=== PATIENT | male | born 1970 | race Caucasian/White ===

== ENCOUNTER 2016-05-11 19:48 | Emergency (ER) | payer OTHER ==
[2016-05-11 19:55] VITALS: RESP 16
[2016-05-11] MEDS ORDERED: HYDROmorphone 1 MG/ML 1 ML SYRINGE IM STA (20:16)
[2016-05-11] MEDS ORDERED: KETOROLAC 30 MG/ML 1 ML VIAL IM STA (20:16)
[2016-05-11] MEDS ORDERED: DEXAMETHASONE SOD PHOSPHATE 10 MG/ML 1 ML VIAL IM STA (20:16)
--- NOTE | 2016-05-11 21:19 | ED ---
General Adult HPI - General Chief complaint: Back Pain/Injury Stated complaint: Back Pain Time Seen by Provider: 05/11/16 19:58 Source: patient Mode of arrival: ambulatory Limitations: no limitations - History of Present Illness Initial comments: Patient is a 45-year-old male who presents to ED with a chief complaint of back pain. Patient states that he has chronic lower back pain for which she follows with Dr. Guevara (sp?). The patient states that he's been taking Laurel 10/325 3 times a day. He notes that this has been insufficient for pain management at home. He has an appointment on May [address] Guevara for injections in his back. The patient states that he is able to ambulate without difficulty. He states his pain is worsened when he goes from sitting to standing position. Patient denies any fecal or urinary incontinence. Patient denies any difficulty with urination. Patient denies any fevers or chills. Patient denies any recent trauma. The patient's pain starts in the lumbar region and radiates down the bilateral posterior thighs. It does not go past the knees. Patient denies any weakness of the bilateral lower extremities. - Related Data Home Medications Medication Instructions Recorded Confirmed Lisinopril 20 mg PO DAILY 01/19/15 05/11/16 HYDROcodone/APAP 10-325MG [Laurel 1 tab PO TID PRN 07/19/15 05/11/16 10-325] [place] Carbonate [[place]] 300 mg PO TID 07/19/15 05/11/16 Levothyroxine Sodium [Synthroid] 125 mcg PO DAILY 05/11/16 05/11/16 Previous Rx's Medication Instructions Recorded Escitalopram [Lexapro] 20 mg PO DAILY #30 tab 03/07/15 Ondansetron Odt [Zofran ODT] 4 mg PO Q8HR PRN #5 tab 06/23/15 Pantoprazole Sodium [Protonix] 40 mg PO DAILY #35 tablet. 06/23/15 Ranitidine HCl [Zantac] 150 mg PO BID #70 tab 06/23/15 Sucralfate [Carafate] 1 gm PO QID #80 tab 06/23/15 Cyclobenzaprine [Flexeril] 5 mg PO HS PRN #14 tab 05/11/16 Gabapentin [Neurontin] 100 mg PO TID 14 Days 05/11/16 Allergies Allergy/AdvReac Type Severity Reaction Status Date / Time propoxyphene napsylate AdvReac Nausea & Verified 05/11/16 20:00 [From Azul-N 100] Vomiting Review of Systems ROS Statement: Those systems with pertinent positive or pertinent negative responses have been documented in the HPI. ROS Other: All systems not noted in ROS Statement are negative. Constitutional: Denies: fever, chills, weakness Eyes: Denies: eye pain ENT: Denies: ear pain, throat pain Respiratory: Denies: cough, dyspnea, wheezes Cardiovascular: Denies: chest pain Endocrine: Denies: fatigue Gastrointestinal: Denies: abdominal pain, nausea, vomiting, diarrhea Genitourinary: Denies: dysuria Musculoskeletal: Reports: back pain. Denies: joint swelling, arthralgia Skin: Denies: rash, lesions Neurological: Reports: other (shooting pain down the bilateral posterior thighs) . Denies: headache, weakness, numbness, paresthesias Psychiatric: Denies: anxiety, depression Past Medical History Past Medical History: Eye Disorder, GERD/Reflux, Hypertension, Skin Disorder, Thyroid Disorder Additional Past Medical History / Comment(s): glaucoma left eye, rosacia, peptic ulcer disease, gastritis, duodenitis, chronic back problems. History of Any Multi-Drug Resistant Organisms: MRSA Date of last positivie culture/infection: 2010 MDRO Source:: kim axilla Past Surgical History: Cholecystectomy Additional Past Surgical History / Comment(s): glaucoma eye surgery, EGD with biopsy, left retina sx Additional Past Anesthesia/Blood Transfusion Reaction / Comment(s): has trouble urinating post op Past Psychological History: Anxiety, Bipolar, Depression, Schizophrenia Additional Psychological History / Comment(s): . Smoking Status: Former smoker Past Alcohol Use History: None Reported Additional Past Alcohol Use History / Comment(s): Pt smoked from age 16 until age 21 when he quit. [id number], SMOKED 1-2PPD Past Drug Use History: Marijuana Additional Drug Use History / Comment(s): Pt states he does smoke marijuana on occasion for pain control. INSTRUCTED TO HOLD 24HRS PRIOR TO PROCEDURE - Past Family History Father Additional Family Medical History / Comment(s): Father was pretty healthy-he at age 73 yrs after being struck by a car. Mother Family Medical History: CVA/TIA Additional Family Medical History / Comment(s): Mother in her 60's. General Exam Limitations: no limitations General appearance: alert, in no apparent distress Head exam: Present: atraumatic Eye exam: Present: normal appearance, PERRL, EOMI Pupils: Present: normal accommodation ENT exam: Present: normal exam Neck exam: Present: normal inspection, full ROM Respiratory exam: Present: normal lung sounds bilaterally. Absent: respiratory distress, wheezes, rales, rhonchi, stridor Cardiovascular Exam: Present: regular rate, normal rhythm GI/Abdominal exam: Present: soft. Absent: distended, tenderness, guarding, rebound, rigid Extremities exam: Present: normal inspection, full ROM. Absent: tenderness Back exam: Present: tenderness (tenderness in the bilateral lumbar region. No bony tenderness on exam), muscle spasm, other (no weakness of the bilateral lower extremities) Neurological exam: Present: alert, oriented X3, normal gait, reflexes normal. Absent: motor sensory deficit Psychiatric exam: Present: normal affect Skin exam: Present: warm, dry, intact Course Vital Signs 05/11/16 05/11/16 19:52 21:38 Temperature 96.9 F L 97.6 F Pulse Rate 61 63 Respiratory 16 16 Rate Blood Pressure 120/78 136/76 O2 Sat by Pulse 97 96 Oximetry Medical Decision Making - Medical Decision Making Patient is a 45-year-old male who presents to ED with a chief complaint of back pain. Patient has chronic back pain. This is bulging disks in the lumbar region. He states that his pain has grown more severe over the course the past 3-4 days. States that the Laurel that he's been taking his been insufficient. Patient notes he has an appointment for spinal injections on May 18. He is looking for medication to help bridge him until that time. We'll provide patient with dose of Dilaudid, Toradol, Decadron today. We'll discharge patient home with Gabapentin and Flexeril. 9:18 PM Patient states that his pain is improved with Dialudid, Decadron, Toradol. Patient requesting to be discharged at this point in time. Patient will be discharged with prescription for Gabapentin and Flexeril to use at home. Counseled patient to use Flexeril QHS for pain to help him sleep. Encouraged patient to follow up with Dr. Guevara for further management of his symptoms, including back injections. I've answered all of the patient's questions to his satisfaction. The patient has ambulated out of the ED. Disposition Clinical Impression: Back pain Disposition: HOME SELF-CARE Condition: Good Instructions: Acute Low Back Pain (ED) Additional Instructions: Please return to the ED should you have worsening symptoms at home, particularly increased difficulty with walking. Also return should you have difficulty with urination. Prescriptions: Cyclobenzaprine [Flexeril] 5 mg PO HS PRN #14 tab PRN Reason: Muscle Spasm Gabapentin [Neurontin] 100 mg PO TID 14 Days Referrals: Devin Goff MD [Primary Care Provider] - 1-2 days Time of Disposition: 21:18
[2016-05-11 21:41] VITALS: BP 136/76; PULSE 63; TEMP 97.6
== END 2016-05-11 21:40 | disposition home or self-care (01) ==
LOC: EC 19:48
DX: G89.29 Other chronic pain (principal); M54.5 Low back pain; E07.9 Disorder of thyroid, unspecified; I10 Essential (primary) hypertension; K21.9 Gastro-esophageal reflux disease without esophagitis; F31.9 Bipolar disorder, unspecified; K27.9 Peptic ulcer, site unspecified, unspecified as acute or chronic, without hemorrhage or perforation; Z88.6 Allergy status to analgesic agent; Z86.14 Personal history of Methicillin resistant Staphylococcus aureus infection; Z87.891 Personal history of nicotine dependence; Z79.899 Other long term (current) drug therapy
CPT/HCPCS: 99283; 96372 ×2; J1100; J1885; J1170

== ENCOUNTER 2016-07-12 15:52 | Emergency (ER) | payer OTHER ==
[2016-07-12 16:00] VITALS: BP 96/51; PULSE 78; RESP 18; TEMP 98
--- NOTE | 2016-07-12 16:22 | ED ---
Lower Extremity Injury HPI - General Chief Complaint: Extremity Injury, Lower Stated Complaint: left foot injury Time Seen by Provider: 07/12/16 16:07 Source: patient, RN notes reviewed, old records reviewed Mode of arrival: wheelchair Limitations: no limitations - History of Present Illness Initial Comments: Patient is a 45-year-old male chief complaint of left foot and ankle pain past 2 days. Patient reports that he was going down the steps of his port. He states that his father and brother went on the steps and no problem. He is the third person ago down in the wood gave out and his foot went through the steps. Patient states that when he fell he also landed on his left side of his lower back. Patient states that he is on a pain contract with Dr. Burton on his been taking [place], but it does not help. He reports that he has been ambulating and bearing weight over his foot. He denies any nausea or vomiting. Denies any other associated symptoms with the fall. He states that he has had no loss of bowel or bladder function. - Related Data Home Medications Medication Instructions Recorded Confirmed Lisinopril 20 mg PO DAILY 01/19/15 05/11/16 HYDROcodone/APAP 10-325MG [[place] 1 tab PO TID PRN 07/19/15 05/11/16 10-325] [place] Carbonate [[place]] 300 mg PO TID 07/19/15 05/11/16 Levothyroxine Sodium [Synthroid] 125 mcg PO DAILY 05/11/16 05/11/16 Previous Rx's Medication Instructions Recorded Escitalopram [Lexapro] 20 mg PO DAILY #30 tab 03/07/15 Ondansetron Odt [Zofran ODT] 4 mg PO Q8HR PRN #5 tab 06/23/15 Pantoprazole Sodium [Protonix] 40 mg PO DAILY #35 tablet. 06/23/15 Ranitidine HCl [Zantac] 150 mg PO BID #70 tab 06/23/15 Sucralfate [Carafate] 1 gm PO QID #80 tab 06/23/15 Cyclobenzaprine [Flexeril] 5 mg PO HS PRN #14 tab 05/11/16 Gabapentin [Neurontin] 100 mg PO TID 14 Days 05/11/16 Ibuprofen [Motrin] 800 mg PO Q6HR PRN #20 tab 07/12/16 Allergies Allergy/AdvReac Type Severity Reaction Status Date / Time propoxyphene napsylate AdvReac Nausea & Verified 07/12/16 16:00 [From Azul-N 100] Vomiting Review of Systems ROS Statement: Those systems with pertinent positive or pertinent negative responses have been documented in the HPI. ROS Other: All systems not noted in ROS Statement are negative. Past Medical History Past Medical History: Eye Disorder, GERD/Reflux, Hypertension, Skin Disorder, Thyroid Disorder Additional Past Medical History / Comment(s): glaucoma left eye, rosacia, peptic ulcer disease, gastritis, duodenitis, chronic back problems. History of Any Multi-Drug Resistant Organisms: MRSA Date of last positivie culture/infection: 2010 MDRO Source:: kim axilla Past Surgical History: Cholecystectomy Additional Past Surgical History / Comment(s): glaucoma eye surgery, EGD with biopsy, left retina sx Additional Past Anesthesia/Blood Transfusion Reaction / Comment(s): has trouble urinating post op Past Psychological History: Anxiety, Bipolar, Depression, Schizophrenia Additional Psychological History / Comment(s): . Smoking Status: Former smoker Past Alcohol Use History: None Reported Additional Past Alcohol Use History / Comment(s): Pt smoked from age 16 until age 21 when he quit. [id number], SMOKED 1-2PPD Past Drug Use History: Marijuana Additional Drug Use History / Comment(s): Pt states he does smoke marijuana on occasion for pain control. INSTRUCTED TO HOLD 24HRS PRIOR TO PROCEDURE - Past Family History Father Additional Family Medical History / Comment(s): Father was pretty healthy-he at age 73 yrs after being struck by a car. Mother Family Medical History: CVA/TIA Additional Family Medical History / Comment(s): Mother in her 60's. General Exam - General Exam Comments Initial Comments: Pleasant 45-year-old male. No distress. Limitations: no limitations General appearance: alert, in no apparent distress Head exam: Present: atraumatic, normocephalic, normal inspection Eye exam: Present: normal appearance, PERRL, EOMI. Absent: scleral icterus, conjunctival injection, periorbital swelling ENT exam: Present: normal exam, normal oropharynx, mucous membranes moist Neck exam: Present: normal inspection Respiratory exam: Present: normal lung sounds bilaterally. Absent: respiratory distress, wheezes, rales, rhonchi, stridor Cardiovascular Exam: Present: regular rate, normal rhythm, normal heart sounds. Absent: systolic murmur, diastolic murmur, rubs, gallop, clicks GI/Abdominal exam: Present: soft, normal bowel sounds. Absent: distended, tenderness, guarding, rebound, rigid Extremities exam: Present: normal inspection, full ROM, normal capillary refill. Absent: tenderness, pedal edema, joint swelling, calf tenderness Left Knee exam: Present: normal inspection, full ROM Lower Leg exam: Present: normal inspection, full ROM Ankle exam: Present: tenderness. Absent: normal inspection, full ROM (Has limited flexion and extension inversion and eversion due to pain.) Foot/Toe exam: Present: normal inspection, full ROM Neurovascular tendon exam: Present: no vascular compromise Gait: observed and limited by pain. negative: observed and normal Back exam: Present: normal inspection Neurological exam: Present: alert, oriented X3, CN II-XII intact Psychiatric exam: Present: normal affect, normal mood Skin exam: Present: warm, dry, intact, normal color. Absent: rash Course Vital Signs 07/12/16 15:58 Temperature 98.0 F Pulse Rate 78 Respiratory 18 Rate Blood Pressure 96/51 O2 Sat by Pulse 97 Oximetry Procedures - Orthopedic Splinting/Casting Injury #1 Side: left Lower Extremity Injury Location: ankle Lower Extremity Immobilizer: stirrup splint Other Orthopedic Equipment: crutches Medical Decision Making - Medical Decision Making Patient is a 45-year-old male with left foot and ankle pain and swelling for 2 days after falling through a porch. Patient also has some lumbar back pain from the fall. He denies any saddle anesthesias or incontinence. Patient does have some contusions over the lower back. Patient's x-rays reviewed. This showed no evidence of any fractures or acute abdomen or maladies. Patient does have significant swelling over the left ankle and foot consistent with a sprain. Patient will be put in a ankle stirrup splint this time. Discussed following up with orthopedic. Patient will be discharged with pain medication as well. Patient agrees the treatment plan will comply. Return parameters were discussed. - Radiology Data Radiology results: report reviewed Foot x-ray shows no acute osseous abnormality. Normal three-view her left ankle. Degenerative disc change in L5-S1. Disposition Clinical Impression: Ankle sprain, Back contusion Disposition: HOME SELF-CARE Condition: Good Instructions: Ankle Sprain (ED), Low Back Strain (ED) Additional Instructions: Patient advised to elevate extremity, ice, and be nonweightbearing over the ankle. Patient has to walk with crutches for the next week. Follow-up with orthopedic physician in approximately one week if symptoms continue to persist. Return to the emergency department if any alarming signs or symptoms occur. Take pain medication as prescribed. Prescriptions: Ibuprofen [Motrin] 800 mg PO Q6HR PRN #20 tab PRN Reason: Pain Referrals: Devin Goff MD [Primary Care Provider] - 1-2 days Time of Disposition: 16:51
--- NOTE | 2016-07-12 16:41 | XR ---
EXAMINATION TYPE: XR foot complete LT DATE OF EXAM: 07/12/2016 4:34 PM COMPARISON: NONE HISTORY: Pain after fall TECHNIQUE: 3 views left foot FINDINGS: Fifth digit appear short. No acute fractures or dislocations are evident. Soft tissues appe ar normal. Follow-up exam can be performed 7-10 days from acute trauma for continued pain. IMPRESSION: 1. No acute osseous abnormality.
--- NOTE | 2016-07-12 16:41 | XR ---
EXAMINATION TYPE: XR ankle complete LT DATE OF EXAM: 07/12/2016 4:34 PM COMPARISON: NONE HISTORY: Swelling pain TECHNIQUE: 3 views left ankle FINDINGS: Ankle mortise is intact. No acute fractures are evident. Soft tissues appear normal. Follow-up exam can be performed 7-10 days from acute trauma for continued pain IMPRESSION: 1. Normal three-view left ankle
--- NOTE | 2016-07-12 16:42 | XR ---
EXAMINATION TYPE: XR lumbar spine 2 or 3V DATE OF EXAM: 07/12/2016 4:34 PM COMPARISON: NONE HISTORY: Pain TECHNIQUE: Three view lumbar spine FINDINGS: There 5 lumbar-type vertebral bodies. Pedicles are intact. Mild narrowing of the posterior disc space at L5-S1 is present. Disc heights are otherwise preserved. Vertebral body heights are pres erved. Alignment is straightened. IMPRESSION: 1. Degenerative disc change L5-S1.
== END 2016-07-12 17:15 | disposition home or self-care (01) ==
LOC: EC 15:52
DX: S93.402A Sprain of unspecified ligament of left ankle, initial encounter (principal); S30.0XXA Contusion of lower back and pelvis, initial encounter; I10 Essential (primary) hypertension; E07.9 Disorder of thyroid, unspecified; F31.9 Bipolar disorder, unspecified; F20.9 Schizophrenia, unspecified; F41.9 Anxiety disorder, unspecified; Z87.891 Personal history of nicotine dependence; Z79.899 Other long term (current) drug therapy; Z88.5 Allergy status to narcotic agent; W10.9XXA Fall (on) (from) unspecified stairs and steps, initial encounter
CPT/HCPCS: 29515; 72100; 99284

== ENCOUNTER 2016-10-13 18:53 | Observation (INO) | payer OTHER ==
[2016-10-13] MEDS ORDERED: SODIUM CHLORIDE 0.9% 1,000 ML IV STA (19:05)
[2016-10-13] MEDS ORDERED: ONDANSETRON 4 MG/2 ML VIAL IVP STA (19:05)
--- NOTE | 2016-10-13 19:08 | ED ---
General Adult HPI - General Chief complaint: Nausea/Vomiting/Diarrhea Stated complaint: feverish Time Seen by Provider: 10/13/16 19:00 Source: patient, RN notes reviewed Mode of arrival: ambulatory Limitations: no limitations - History of Present Illness Initial comments: This is a 46-year-old male who presents emergency Department complaining of diaphoresis and nausea. Patient states this morning he gave plasma and after he gave plasma he was very nauseated that nausea went away and returned early in the afternoon. That again went away and then he started feeling nauseous at about 6:[address] drive him to the hospital. Patient states on route to the hospital he vomited times one. Patient denies any fever chills. Patient denies any pain. Patient denies chest pain difficulty breathing shortness breath per patient denies any abdominal pain. Patient denies any diarrhea. Patient denies any recent fever or chills. Patient denies any recent injury or trauma. Patient denies headache patient denies numbness weakness. - Related Data Home Medications Medication Instructions Recorded Confirmed Lisinopril 20 mg PO DAILY 01/19/15 10/13/16 HYDROcodone/APAP 10-325MG [[place] 1 tab PO TID PRN 07/19/15 10/13/16 10-325] [place] Carbonate [[place]] 300 mg PO TID 07/19/15 10/13/16 Levothyroxine Sodium [Synthroid] 125 mcg PO DAILY 05/11/16 10/13/16 ALPRAZolam [Xanax] 1 mg PO TID PRN 10/13/16 10/13/16 Ondansetron [Zofran] 4 mg PO QID PRN 10/13/16 10/13/16 Sucralfate [Carafate] 1 gm PO ACHS 10/13/16 10/13/16 Previous Rx's Medication Instructions Recorded Escitalopram [Lexapro] 20 mg PO DAILY #30 tab 03/07/15 Pantoprazole Sodium [Protonix] 40 mg PO DAILY #35 tablet. 06/23/15 Ranitidine HCl [Zantac] 150 mg PO BID #70 tab 06/23/15 Allergies Allergy/AdvReac Type Severity Reaction Status Date / Time propoxyphene napsylate AdvReac Nausea & Verified 10/13/16 18:55 [From Darvocet-N 100] Vomiting Review of Systems ROS Statement: Those systems with pertinent positive or pertinent negative responses have been documented in the HPI. ROS Other: All systems not noted in ROS Statement are negative. Past Medical History Past Medical History: Eye Disorder, GERD/Reflux, Hypertension, Skin Disorder, Thyroid Disorder Additional Past Medical History / Comment(s): glaucoma left eye, rosacia, peptic ulcer disease, gastritis, duodenitis, chronic back problems. History of Any Multi-Drug Resistant Organisms: MRSA Date of last positivie culture/infection: 2010 MDRO Source:: kim axilla Past Surgical History: Cholecystectomy Additional Past Surgical History / Comment(s): glaucoma eye surgery, EGD with biopsy, left retina sx Additional Past Anesthesia/Blood Transfusion Reaction / Comment(s): has trouble urinating post op Past Psychological History: Anxiety, Bipolar, Depression, Schizophrenia Smoking Status: Former smoker Past Alcohol Use History: None Reported Past Drug Use History: Marijuana - Past Family History Father Additional Family Medical History / Comment(s): Father was pretty healthy-he at age 73 yrs after being struck by a car. Mother Family Medical History: CVA/TIA Additional Family Medical History / Comment(s): Mother in her 60's. General Exam - General Exam Comments Initial Comments: GENERAL: Patient is well-developed and well-nourished. Patient is nontoxic and well- hydrated and is in mild distress. Patient is obviously diaphoretic ENT: Neck is soft and supple. No significant lymphadenopathy is noted. Oropharynx is clear. Moist mucous membranes. Neck has full range of motion without eliciting any pain. EYES: The sclera were anicteric and conjunctiva were pink and moist. Extraocular movements were intact and pupils were equal round and reactive to light. Eyelids were unremarkable. PULMONARY: Unlabored respirations. Good breath sounds bilaterally. No audible rales rhonchi or wheezing was noted. CARDIOVASCULAR: There is a regular rate and rhythm without any murmurs gallops or rubs. ABDOMEN: Soft and nontender with normal bowel sounds. No palpable organomegaly was noted. There is no palpable pulsatile mass. SKIN: Skin is clear with no lesions or rashes and otherwise unremarkable. NEUROLOGIC: Patient is alert and oriented x3. Cranial nerves II through XII are grossly intact. Motor and sensory are also intact. Normal speech, volume and content. Symmetrical smile. MUSCULOSKELETAL: Normal extremities with adequate strength and full range of motion. No lower extremity swelling or edema. No calf tenderness. LYMPHATICS: No significant lymphadenopathy is noted PSYCHIATRIC: Normal psychiatric evaluation. Limitations: no limitations Course Vital Signs 10/13/16 10/13/16 10/13/16 18:55 19:23 20:19 Temperature 96.7 F L 97.8 F Pulse Rate 52 L 55 L 56 L Respiratory 18 18 18 Rate Blood Pressure 138/97 121/65 141/79 O2 Sat by Pulse 100 100 100 Oximetry Medical Decision Making - Medical Decision Making EKG shows sinus bradycardia 52 bpm HI interval 162 QRS is 82 QT interval is 472 QTC is 438. There is no ST segment elevation or depression. I will back into the room to reevaluate the patient's heart rate was 36 on the monitor he was again diaphoretic feel nauseous. Patient states the symptoms come and go in waves per patient states at no time does he feel any pain. Patient denies any lightheadedness or dizziness. Patient states this is been ongoing all day. Patient states one other time he was told he was bradycardic. - Lab Data Result diagrams: 10/13/16 19:10 10/13/16 19:10 Lab Results 10/13/16 10/13/16 10/13/16 Range/Units 19:10 19:10 19:10 WBC 18.4 H (3.8-10.6) k/uL RBC 5.44 (4.30-5.90) m/uL Hgb 16.4 (13.0-17.5) gm/dL Hct 49.2 (39.0-53.0) % MCV 90.5 (80.0-100.0) fL MCH 30.2 (25.0-35.0) pg MCHC 33.4 (31.0-37.0) g/dL RDW 13.6 (11.5-15.5) % Plt Count 403 (150-450) k/uL Neutrophils % 85 % Lymphocytes % 9 % Monocytes % 5 % Eosinophils % 1 % Basophils % 1 % Neutrophils # 15.6 H (1.3-7.7) k/uL Lymphocytes # 1.6 (1.0-4.8) k/uL Monocytes # 0.9 (0-1.0) k/uL Eosinophils # 0.1 (0-0.7) k/uL Basophils # 0.1 (0-0.2) k/uL Sodium 136 L (137-145) mmol/L Potassium 4.3 (3.5-5.1) mmol/L Chloride 106 (98-107) mmol/L Carbon Dioxide 19 L (22-30) mmol/L Anion Gap 11 mmol/L BUN 14 (9-20) mg/dL Creatinine 0.88 (0.66-1.25) mg/dL Est GFR (MDRD) Af Amer >60 (>60 ml/min/1.73 sqM) Est GFR (MDRD) Non-Af >60 (>60 ml/min/1.73 sqM) Glucose 158 H (74-99) mg/dL Calcium 9.9 (8.4-10.2) mg/dL Magnesium 1.8 (1.6-2.3) mg/dL Total Bilirubin 0.6 (0.2-1.3) mg/dL AST 28 (17-59) U/L ALT 42 (21-72) U/L Alkaline Phosphatase 84 (38-126) U/L Total Creatine Kinase 50 L (55-170) U/L CK-MB (CK-2) 1.1 (0.0-2.4) ng/mL CK-MB (CK-2) Rel Index 2.2 Troponin I <0.012 (0.000-0.034) ng/mL Total Protein 6.4 (6.3-8.2) g/dL Albumin 4.2 (3.5-5.0) g/dL Urine Opiates Screen (NotDetected) Ur Oxycodone Screen (NotDetected) Urine Methadone Screen (NotDetected) Ur Propoxyphene Screen (NotDetected) Ur Barbiturates Screen (NotDetected) U Tricyclic Antidepress (NotDetected) Ur Phencyclidine Scrn (NotDetected) Ur Amphetamines Screen (NotDetected) U Methamphetamines Scrn (NotDetected) U Benzodiazepines Scrn (NotDetected) Urine Cocaine Screen (NotDetected) U Marijuana (THC) Screen (NotDetected) 10/13/16 Range/Units 20:08 WBC (3.8-10.6) k/uL RBC (4.30-5.90) m/uL Hgb (13.0-17.5) gm/dL Hct (39.0-53.0) % MCV (80.0-100.0) fL MCH (25.0-35.0) pg MCHC (31.0-37.0) g/dL RDW (11.5-15.5) % Plt Count (150-450) k/uL Neutrophils % % Lymphocytes % % Monocytes % % Eosinophils % % Basophils % % Neutrophils # (1.3-7.7) k/uL Lymphocytes # (1.0-4.8) k/uL Monocytes # (0-1.0) k/uL Eosinophils # (0-0.7) k/uL Basophils # (0-0.2) k/uL Sodium (137-145) mmol/L Potassium (3.5-5.1) mmol/L Chloride (98-107) mmol/L Carbon Dioxide (22-30) mmol/L Anion Gap mmol/L BUN (9-20) mg/dL Creatinine (0.66-1.25) mg/dL Est GFR (MDRD) Af Amer (>60 ml/min/1.73 sqM) Est GFR (MDRD) Non-Af (>60 ml/min/1.73 sqM) Glucose (74-99) mg/dL Calcium (8.4-10.2) mg/dL Magnesium (1.6-2.3) mg/dL Total Bilirubin (0.2-1.3) mg/dL AST (17-59) U/L ALT (21-72) U/L Alkaline Phosphatase (38-126) U/L Total Creatine Kinase (55-170) U/L CK-MB (CK-2) (0.0-2.4) ng/mL CK-MB (CK-2) Rel Index Troponin I (0.000-0.034) ng/mL Total Protein (6.3-8.2) g/dL Albumin (3.5-5.0) g/dL Urine Opiates Screen Detected H (NotDetected) Ur Oxycodone Screen Not Detected (NotDetected) Urine Methadone Screen Not Detected (NotDetected) Ur Propoxyphene Screen Not Detected (NotDetected) Ur Barbiturates Screen Not Detected (NotDetected) U Tricyclic Antidepress Not Detected (NotDetected) Ur Phencyclidine Scrn Not Detected (NotDetected) Ur Amphetamines Screen Not Detected (NotDetected) U Methamphetamines Scrn Not Detected (NotDetected) U Benzodiazepines Scrn Not Detected (NotDetected) Urine Cocaine Screen Not Detected (NotDetected) U Marijuana (THC) Screen Detected H (NotDetected) Disposition Clinical Impression: Symptomatic bradycardia Disposition: ADMITTED IP TO THIS HOSP Referrals: Devin Goff MD [Primary Care Provider] - 1-2 days Time of Disposition: 20:40
[2016-10-13] MEDS ORDERED: ESOMEPRAZOLE 20 MG in SODIUM CHLORIDE 0.9% 50 ML IVPB STA (19:15)
[2016-10-13 19:25] LABS: Basophils # (A) 0.1 k/uL (0-0.2); Basophils % (A) 1 %; CH 31.3; CHCM 34.7; Eosinophils # (A) 0.1 k/uL (0-0.7); Eosinophils % (A) 1 %; HCT 49.2 % (39.0-53.0); HGB 16.4 gm/dL (13.0-17.5); Luc # (Auto) 0.11; Luc % (Auto) 1; Lymphocytes # (A) 1.6 k/uL (1.0-4.8); Lymphocytes % (A) 9 %; MCH 30.2 pg (25.0-35.0); MCHC 33.4 g/dL (31.0-37.0); MCV 90.5 fL (80.0-100.0); Mean Platelet Volume 7.9; Monocytes # (A) 0.9 k/uL (0-1.0); Monocytes % (A) 5 %; Neutrophils # (A) 15.6 k/uL (1.3-7.7); Neutrophils % (A) 85 %; RBC 5.44 m/uL (4.30-5.90); RDW 13.6 % (11.5-15.5); WBC 18.4 k/uL (3.8-10.6); WBC (Perox) 19.34
[2016-10-13 19:35] LABS: ALT 42 U/L (21-72); AST 28 U/L (17-59); Alkaline Phosphatase 84 U/L (38-126); Anion Gap 11 mmol/L; Blood Urea Nitrogen 14 mg/dL (9-20); Calcium 9.9 mg/dL (8.4-10.2); Carbon Dioxide 19 mmol/L (22-30); Chloride 106 mmol/L (98-107); Glucose 158 mg/dL (74-99); Magnesium 1.8 mg/dL (1.6-2.3); Non-African American GFR(MDRD) >60 (>60 ml/min/1.73 sqM); Potassium 4.3 mmol/L (3.5-5.1); Sodium 136 mmol/L (137-145); Total Bilirubin 0.6 mg/dL (0.2-1.3); Total Protein 6.4 g/dL (6.3-8.2)
[2016-10-13 19:53] LABS: Creatine Kinase 50 U/L (55-170)
[2016-10-13 20:07] LABS: Creatine Kinase MB 1.1 ng/mL (0.0-2.4); Troponin I <0.012 ng/mL (0.000-0.034)
[2016-10-13] MEDS ORDERED: SODIUM CHLORIDE 0.9% 1,000 ML IV ONE (20:40)
--- NOTE | 2016-10-13 21:03 | XR ---
EXAMINATION TYPE: XR chest 2V DATE OF EXAM: 10/13/2016 COMPARISON: January 27, 2016 HISTORY: Difficulty breathing. TECHNIQUE: Frontal and lateral views of the chest are obtained. FINDINGS: There is no focal air space opacity, pleural effusion, or pneumothorax seen. The cardiac silhouette size is within normal limits. The osseous structures are intact. The appearance of the c hest is unchanged. IMPRESSION: No acute cardiopulmonary process.
[2016-10-13] MEDS: ONDANSETRON 4 MG/2 ML VIAL IVP PRN (22:00)
[2016-10-13 22:16] VITALS: BMI 27.6
[2016-10-13] MEDS: HYDROcodone/APAP 5-325MG 1 EACH TAB PO PRN (22:21)
[2016-10-14 00:20] VITALS: RESP 16
[2016-10-14 01:14] LABS: Appearance,Urine Clear (Clear); Bilirubin,Urine Negative (Negative); Glucose,Urine (UA) Negative (Negative); Ketones,Urine 3+ (Negative); Leukocyte Esterase,Urine Negative (Negative); Nitrite,Urine Negative (Negative); PH, Urine 6.5 (5.0-8.0); Protein,Urine Trace (Negative); Specific Gravity,Urine 1.019 (1.001-1.035); UA Billing (MACRO vs. MICRO) CHEM; Urobilinogen,Urine <2.0 mg/dL (<2.0)
[2016-10-14] MEDS: HYDROcodone/APAP 5-325MG 1 EACH TAB PO PRN ×2 (03:29→09:59)
[2016-10-14] MEDS: ONDANSETRON 4 MG/2 ML VIAL IVP PRN (11:21)
[2016-10-14 12:07] VITALS: BP 140/77; PULSE 62; TEMP 98.3
[2016-10-14] MEDS ORDERED: ALPRAZolam 0.5 MG TAB PO PRN (12:07)
[2016-10-14] MEDS ORDERED: PANTOPRAZOLE 40 MG TABLET PO SCH (12:30)
[2016-10-14] MEDS ORDERED: ESCITALOPRAM 20 MG TAB PO SCH (12:30)
[2016-10-14] MEDS ORDERED: LISINOPRIL 20 MG TAB PO SCH (12:30)
[2016-10-14] MEDS ORDERED: SUCRALFATE 1 GM TAB PO SCH (12:30)
[2016-10-14] MEDS ORDERED: FAMOTIDINE 20 MG TAB PO SCH (12:30)
[2016-10-14] MEDS ORDERED: LITHIUM CARBONATE 300 MG CAP PO SCH (12:30)
--- NOTE | 2016-10-14 14:33 | P.HPIM ---
History of Present Illness H&P Date: 10/14/16 This is a 46-year-old gentleman comes in the hospital with diaphoresis and generalized weakness. Patient stated that he was in normal health the day prior to admission Patient did not eat his dinner thereafter went to donate plasma. Patient left the plasma donation center was weak then started noticing multiple episodes of diaphoresis hence came in the emergency room for further care Patient states that he has not had anything to eat all day yesterday Patient was seen in the ER was noted to have a heart rhythm around 50s sinus rhythm on the initial EKG with no ST-T wave changes Patient was diaphoretic was given IV fluids and oral intake was encouraged patient states that he is improved overnight does states that he was able to have it without much difficulty denies having any headaches blurry vision nausea vomiting diarrhea Patient does attribute his symptoms to recent plasma donation and dehydration Review of Systems All systems: negative (Noted in HPI) Past Medical History Past Medical History: Eye Disorder, GERD/Reflux, Hypertension, Skin Disorder, Thyroid Disorder Additional Past Medical History / Comment(s): bradycardia, glaucoma left eye, rosacia, peptic ulcer disease, gastritis, duodenitis, chronic back problems. History of Any Multi-Drug Resistant Organisms: MRSA Date of last positivie culture/infection: 2010 MDRO Source:: kim axilla Past Surgical History: Cholecystectomy Additional Past Surgical History / Comment(s): glaucoma eye surgery, EGD with biopsy, left retina sx Additional Past Anesthesia/Blood Transfusion Reaction / Comment(s): has trouble urinating post op Past Psychological History: Anxiety, Bipolar, Depression, Schizophrenia Additional Psychological History / Comment(s): . Smoking Status: Former smoker Past Alcohol Use History: None Reported Past Drug Use History: Marijuana Additional Drug Use History / Comment(s): Pt states he does smoke marijuana on occasion for pain control. - Past Family History Father Additional Family Medical History / Comment(s): Father was pretty healthy-he at age 73 yrs after being struck by a car. Mother Family Medical History: CVA/TIA Additional Family Medical History / Comment(s): Mother in her 60's. Medications and Allergies Home Medications Medication Instructions Recorded Confirmed Type Lisinopril 20 mg PO DAILY 01/19/15 10/13/16 History HYDROcodone/APAP 10-325MG [[place] 1 tab PO TID PRN 07/19/15 10/13/16 History 10-325] [place] Carbonate 300 mg PO TID 07/19/15 10/13/16 History Levothyroxine Sodium [Synthroid] 125 mcg PO DAILY 05/11/16 10/13/16 History ALPRAZolam [Xanax] 1 mg PO TID PRN 10/13/16 10/13/16 History Ondansetron [Zofran] 4 mg PO QID PRN 10/13/16 10/13/16 History Sucralfate [Carafate] 1 gm PO ACHS 10/13/16 10/13/16 History Allergies Allergy/AdvReac Type Severity Reaction Status Date / Time propoxyphene napsylate AdvReac Nausea & Verified 10/13/16 18:55 [From [facility]-N 100] Vomiting Physical Exam Vitals: Vital Signs Temp Pulse Pulse Pulse Resp BP BP 10/14/16 12:00 98.3 F 62 16 140/77 10/14/16 08:00 98.7 F 52 L 16 141/73 10/14/16 04:00 98.7 F 59 L 16 134/74 10/14/16 03:38 49 L 16 10/14/16 00:00 98.5 F 84 16 131/74 10/13/16 22:25 42 L 18 10/13/16 21:02 51 L 18 146/91 10/13/16 20:54 98.1 F 44 L 16 144/81 10/13/16 20:19 97.8 F 56 L 18 141/79 10/13/16 19:23 55 L 18 121/65 10/13/16 18:55 96.7 F L 52 L 18 138/97 Pulse Ox 10/14/16 12:00 95 10/14/16 08:00 98 10/14/16 04:00 99 10/14/16 03:38 10/14/16 00:00 98 10/13/16 22:25 10/13/16 21:02 100 10/13/16 20:54 100 10/13/16 20:19 100 10/13/16 19:23 100 10/13/16 18:55 100 Intake and Output 10/13/16 10/14/16 10/14/16 22:59 06:59 14:59 Other: Voiding Method Toilet Toilet # Voids 2 Weight 95.2 kg Physical exam Gen. appearance oriented 3 in no distress Neck is supple no JVD Lungs good air entry clear to auscultation no rhonchi or wheezing Heart S1-S2 heard regular rate and rhythm no murmurs appreciated Abdomen is soft nontender no organomegaly bowel sounds are intact Neurologically cranial nerves II-12 grossly intact no focal motor or sensory deficits noted Skin no abnormalities appreciated Results CBC & Chem 7: 10/13/16 19:10 10/13/16 19:10 Labs: Abnormal Lab Results - Last 24 Hours (Table) 10/13/16 10/13/16 10/13/16 Range/Units 19:10 19:10 19:10 WBC 18.4 H (3.8-10.6) k/uL Neutrophils # 15.6 H (1.3-7.7) k/uL Sodium 136 L (137-145) mmol/L Carbon Dioxide 19 L (22-30) mmol/L Glucose 158 H (74-99) mg/dL Total Creatine Kinase 50 L (55-170) U/L Urine Protein (Negative) Urine Ketones (Negative) Urine Opiates Screen (NotDetected) U Marijuana (THC) Screen (NotDetected) 10/13/16 10/13/16 Range/Units 20:08 23:55 WBC (3.8-10.6) k/uL Neutrophils # (1.3-7.7) k/uL Sodium (137-145) mmol/L Carbon Dioxide (22-30) mmol/L Glucose (74-99) mg/dL Total Creatine Kinase (55-170) U/L Urine Protein Trace H (Negative) Urine Ketones 3+ H (Negative) Urine Opiates Screen Detected H (NotDetected) U Marijuana (THC) Screen Detected H (NotDetected) Microbiology - Last 24 Hours (Table) 10/13/16 23:55 Urine Culture - Preliminary Urine,Voided Thrombosis Risk Factor Assmnt - Choose All That Apply Each Factor Represents 1 point: Age 41-60 years Thrombosis Risk Factor Assessment Total Risk Factor Score: 1 Thrombosis Risk Factor Assessment Level: Low Risk Assessment and Plan Plan: #1 presyncope likely due to dehydration and recent plasma donation #2 essential hypertension #3 bipolar disorder #4 disability #5 hypothyroidism Plan Patient was hydrated is stable was able to family without difficulty I suspected diaphoresis and presyncope symptoms are likely due to severe dehydration Patient was stable is discharged home in a stable condition patient is not symptomatic with his bradycardia patient's heart rate still 50s and is tolerating it well
--- NOTE | 2016-10-14 16:30 | P.CRDCN ---
History of Present Illness Consult date: 10/14/16 History of present illness: This is a 46-year-old gentleman who was admitted to the hospital with extreme nausea and weakness and agent apparently donated plasma. He subsequently noticed he would episodes of sweating and also nausea. While in the emergency room patient became bradycardic. Patient is admitted here for further evaluation. And has given IV fluids. Since admission his heart rate has been stable. He denies any chest pain or shortness of breath. No history of syncope. Plan at this point I do not think patient needs any further cardiac workup. His of bradycardia is most probably vasovagal. Patient also might have been mildly dehydrated. Patient could be discharged home from Card[facility] standpoint Past Medical History Past Medical History: Eye Disorder, GERD/Reflux, Hypertension, Skin Disorder, Thyroid Disorder Additional Past Medical History / Comment(s): bradycardia, glaucoma left eye, rosacia, peptic ulcer disease, gastritis, duodenitis, chronic back problems. History of Any Multi-Drug Resistant Organisms: MRSA Date of last positivie culture/infection: 2010 MDRO Source:: kim axilla Past Surgical History: Cholecystectomy Additional Past Surgical History / Comment(s): glaucoma eye surgery, EGD with biopsy, left retina sx Additional Past Anesthesia/Blood Transfusion Reaction / Comment(s): has trouble urinating post op Past Psychological History: Anxiety, Bipolar, Depression, Schizophrenia Additional Psychological History / Comment(s): . Smoking Status: Former smoker Past Alcohol Use History: None Reported Past Drug Use History: Marijuana Additional Drug Use History / Comment(s): Pt states he does smoke marijuana on occasion for pain control. - Past Family History Father Additional Family Medical History / Comment(s): Father was pretty healthy-he at age 73 yrs after being struck by a car. Mother Family Medical History: CVA/TIA Additional Family Medical History / Comment(s): Mother in her 60's. Medications and Allergies Home Medications Medication Instructions Recorded Confirmed Type Lisinopril 20 mg PO DAILY 01/19/15 10/13/16 History HYDROcodone/APAP 10-325MG [[place] 1 tab PO TID PRN 07/19/15 10/13/16 History 10-325] [place] Carbonate 300 mg PO TID 07/19/15 10/13/16 History Levothyroxine Sodium [Synthroid] 125 mcg PO DAILY 05/11/16 10/13/16 History ALPRAZolam [Xanax] 1 mg PO TID PRN 10/13/16 10/13/16 History Ondansetron [Zofran] 4 mg PO QID PRN 10/13/16 10/13/16 History Sucralfate [Carafate] 1 gm PO ACHS 10/13/16 10/13/16 History Allergies Allergy/AdvReac Type Severity Reaction Status Date / Time propoxyphene napsylate AdvReac Nausea & Verified 10/13/16 18:55 [From Darvocet-N 100] Vomiting Physical Exam Vitals: Vital Signs Temp Pulse Pulse Pulse Resp BP BP 10/14/16 12:00 98.3 F 62 16 140/77 10/14/16 08:00 98.7 F 52 L 16 141/73 10/14/16 04:00 98.7 F 59 L 16 134/74 10/14/16 03:38 49 L 16 10/14/16 00:00 98.5 F 84 16 131/74 10/13/16 22:25 42 L 18 10/13/16 21:02 51 L 18 146/91 10/13/16 20:54 98.1 F 44 L 16 144/81 10/13/16 20:19 97.8 F 56 L 18 141/79 10/13/16 19:23 55 L 18 121/65 10/13/16 18:55 96.7 F L 52 L 18 138/97 Pulse Ox 10/14/16 12:00 95 10/14/16 08:00 98 10/14/16 04:00 99 10/14/16 03:38 10/14/16 00:00 98 10/13/16 22:25 10/13/16 21:02 100 10/13/16 20:54 100 10/13/16 20:19 100 10/13/16 19:23 100 10/13/16 18:55 100 Intake and Output 10/14/16 10/14/16 10/14/16 06:59 14:59 22:59 Other: Voiding Method Toilet # Voids 2 GENERAL EXAM: Patient is alert and oriented and doesn't appear to be in any acute distress HEENT: Normocephalic. Normal reaction of pupils, equal size, normal range of extraocular motion. No erythema or exudates in the throat. NECK: No masses, no nuchal rigidity. CHEST: No chest wall deformity. LUNGS: Equal air entry with no crackles or wheeze. HEART: S1 and S2 normal with no audible mumurs or gallops. Regular rhythm, femorals equal on both sides.. ABDOMEN: No hepatosplenomegaly, normal bowel sounds, no guarding or rigidity. SKIN: No rashes CENTRAL NERVOUS SYSTEM: No focal deficits. EXTREMITIES: No cyanosis, clubbing or edema. Results 10/13/16 19:10 10/13/16 19:10 Cardiac Enzymes 10/13/16 10/13/16 Range/Units 19:10 19:10 AST 28 (17-59) U/L CK-MB (CK-2) 1.1 (0.0-2.4) ng/mL Troponin I <0.012 (0.000-0.034) ng/mL CBC 10/13/16 Range/Units 19:10 WBC 18.4 H (3.8-10.6) k/uL RBC 5.44 (4.30-5.90) m/uL Hgb 16.4 (13.0-17.5) gm/dL Hct 49.2 (39.0-53.0) % Plt Count 403 (150-450) k/uL Comprehensive Metabolic Panel 10/13/16 Range/Units 19:10 Sodium 136 L (137-145) mmol/L Potassium 4.3 (3.5-5.1) mmol/L Chloride 106 (98-107) mmol/L Carbon Dioxide 19 L (22-30) mmol/L BUN 14 (9-20) mg/dL Creatinine 0.88 (0.66-1.25) mg/dL Glucose 158 H (74-99) mg/dL Calcium 9.9 (8.4-10.2) mg/dL AST 28 (17-59) U/L ALT 42 (21-72) U/L Alkaline Phosphatase 84 (38-126) U/L Total Protein 6.4 (6.3-8.2) g/dL Albumin 4.2 (3.5-5.0) g/dL Intake and Output 10/14/16 10/14/16 10/14/16 06:59 14:59 22:59 Other: Voiding Method Toilet # Voids 2 10/13/16 19:10 10/13/16 19:10 EKG Interpretations (text) Sinus rhythm and sinus bradycardia Assessment and Plan (1) Bradycardia Status: Acute (2) Nausea Status: Acute (3) Hypertension Status: Acute Plan: Patient had a mild bradycardia related to nausea and vasovagal phenomenon. No Sigmund arrhythmias are noted. Patient doesn't have any chest pain. From Cardec standpoint patient could be discharged home.
[2016-10-15] MEDS ORDERED: LEVOTHYROXINE 125 MCG TAB PO SCH (06:30)
== END 2016-10-14 13:40 | disposition home or self-care (01) ==
LOC: EC 18:53 → 3OBS 20:40
PROVIDERS: ADMIT Hospitalist; ATTEND Hospitalist
DX: E86.0 Dehydration (principal); R55 Syncope and collapse; I10 Essential (primary) hypertension; E03.9 Hypothyroidism, unspecified; F31.9 Bipolar disorder, unspecified; R19.7 Diarrhea, unspecified; R11.2 Nausea with vomiting, unspecified; R00.1 Bradycardia, unspecified; K21.9 Gastro-esophageal reflux disease without esophagitis; H57.9 Unspecified disorder of eye and adnexa; H40.9 Unspecified glaucoma; L71.9 Rosacea, unspecified; Z79.899 Other long term (current) drug therapy; Z87.11 Personal history of peptic ulcer disease; Z88.5 Allergy status to narcotic agent; F41.9 Anxiety disorder, unspecified; F20.9 Schizophrenia, unspecified; Z86.14 Personal history of Methicillin resistant Staphylococcus aureus infection; Z87.891 Personal history of nicotine dependence
CPT/HCPCS: 96361 ×3; 96376 ×2; 96374; 96375; 99285; 36415; 93005; 80053; 82550; 82553; 80178; 83735; 84484; 85025; 81003; 80306; 87086; 71020; G0378 ×2; J2405 ×2

== ENCOUNTER 2016-11-28 03:07 | Emergency (ER) | payer OTHER ==
[2016-11-28 03:13] VITALS: BP 131/60; PULSE 58; RESP 16; TEMP 98.6
[2016-11-28] MEDS ORDERED: SULFAMETH-TMP DS STARTER PACK 2 TAB BTL PO STA (03:49)
--- NOTE | 2016-11-28 03:55 | ED ---
General Adult HPI - General Chief complaint: Extremity Problem,Nontraumatic Stated complaint: Abcess on left shoulder Time Seen by Provider: 11/28/16 03:15 Source: patient Mode of arrival: ambulatory - History of Present Illness Initial comments: 46-year-old male patient presents to emergency department today for evaluation of an abscess to his posterior left shoulder. Patient states that about a week ago he had a blackhead to his left shoulder that he popped, and got some drainage of pus. He states that over the last week the area has become swollen , red, and painful. He states that tonight is very tender to the touch and he couldn't handle the pain any longer. Patient states that he takes [place] 10 for chronic back pain and this did not help his pain. Patient denies any recent fever, chills, shortness breath, chest pain, abdominal pain, nausea, vomiting, diarrhea, constipation, back pain, numbness, tingling, weakness, hematuria, headache, visual changes, or any other complaints. He denies any history of IV drug abuse. Denies any history of similar lesions. - Related Data Home Medications Medication Instructions Recorded Confirmed Lisinopril 20 mg PO DAILY 01/19/15 10/13/16 HYDROcodone/APAP 10-325MG [[place] 1 tab PO TID PRN 07/19/15 10/13/16 10-325] [place] Carbonate 300 mg PO TID 07/19/15 10/13/16 Levothyroxine Sodium [Synthroid] 125 mcg PO DAILY 05/11/16 10/13/16 ALPRAZolam [Xanax] 1 mg PO TID PRN 10/13/16 10/13/16 Ondansetron [Zofran] 4 mg PO QID PRN 10/13/16 10/13/16 Sucralfate [Carafate] 1 gm PO ACHS 10/13/16 10/13/16 Previous Rx's Medication Instructions Recorded Escitalopram [Lexapro] 20 mg PO DAILY #30 tab 03/07/15 Pantoprazole Sodium [Protonix] 40 mg PO DAILY #35 tablet. 06/23/15 Ranitidine HCl [Zantac] 150 mg PO BID #70 tab 06/23/15 Sulfamethox-Tmp 800-160Mg [Bactrim 1 tab PO Q12HR #20 tab 11/28/16 DS 800-160 mg] Allergies Allergy/AdvReac Type Severity Reaction Status Date / Time propoxyphene napsylate AdvReac Nausea & Verified 10/13/16 18:55 [From Darvocet-N 100] Vomiting Review of Systems ROS Statement: Those systems with pertinent positive or pertinent negative responses have been documented in the HPI. ROS Other: All systems not noted in ROS Statement are negative. Past Medical History Past Medical History: Eye Disorder, GERD/Reflux, Hypertension, Skin Disorder, Thyroid Disorder Additional Past Medical History / Comment(s): bradycardia, glaucoma left eye, rosacia, peptic ulcer disease, gastritis, duodenitis, chronic back problems. History of Any Multi-Drug Resistant Organisms: MRSA Date of last positivie culture/infection: 2010 MDRO Source:: kim axilla Past Surgical History: Cholecystectomy Additional Past Surgical History / Comment(s): glaucoma eye surgery, EGD with biopsy, left retina sx Additional Past Anesthesia/Blood Transfusion Reaction / Comment(s): has trouble urinating post op Past Psychological History: Anxiety, Bipolar, Depression, Schizophrenia Smoking Status: Former smoker Past Alcohol Use History: None Reported Past Drug Use History: Marijuana - Past Family History Father Additional Family Medical History / Comment(s): Father was pretty healthy-he at age 73 yrs after being struck by a car. Mother Family Medical History: CVA/TIA Additional Family Medical History / Comment(s): Mother in her 60's. General Exam General appearance: alert, in no apparent distress Neck exam: Present: normal inspection. Absent: tenderness, meningismus, lymphadenopathy Respiratory exam: Present: normal lung sounds bilaterally. Absent: respiratory distress, wheezes, rales, rhonchi, stridor Cardiovascular Exam: Present: regular rate, normal rhythm, normal heart sounds. Absent: systolic murmur, diastolic murmur, rubs, gallop, clicks Extremities exam: Present: full ROM, normal capillary refill, other (Left posterior shoulder exhibits a 3 cm x 3 cm abscess, with erythema extending out approximately 4-5 cm. Area is hot to touch, and fluctuant.). Absent: normal inspection, tenderness, pedal edema, joint swelling, calf tenderness Neurological exam: Present: alert, oriented X3, CN II-XII intact Psychiatric exam: Present: normal affect, normal mood Skin exam: Present: warm, dry, intact, normal color. Absent: rash Course Vital Signs 11/28/16 03:10 Temperature 98.6 F Pulse Rate 58 L Respiratory 16 Rate Blood Pressure 131/60 O2 Sat by Pulse 98 Oximetry Procedures - Incision & Drainage Consent Obtained: verbal consent Time Out Performed?: Yes Indication: Abscess Site: other (Left posterior shoulder) Size (cm): 3 (3 cm x 3 cm) Anesthetic Used: lidocaine 1% Amount (mLs): 4 I&D Cleaning Method: Betadine Sterile Field Used?: Yes Scalpel Used: #11 Needle Aspiration Performed?: No Irrigation Performed?: No I&D Drainage Obtained: Pus, Blood Packing: Iodoform Culture Obtained?: Yes Patient Tolerated Procedure: well, no complications Medical Decision Making - Medical Decision Making 46 year-old male presented for evaluation of abscess to his left posterior shoulder. I&D was performed to the abscess, drainage of pus and blood was cultured. Site was packed with iodoform gauze. He was given Bactrim starter pack here in the department. He is referred to general surgery for reevaluation of the abscess. He was instructed to return here for packing removal in 3 days if he is unable to get into the surgeon. He does not currently have a primary care physician however states that he will call to get an appointment. Patient takes [place] 10 home for pain control. He is instructed to apply warm compresses to the site. He is instructed to complete antibiotic prescription in full even if he is feeling better. He is instructed to return here immediately if he develops any fever or any other new, worsening , or concerning symptoms. Patient verbalizes understanding and agrees with this plan. Disposition Clinical Impression: Abscess, Cellulitis Disposition: HOME SELF-CARE Condition: Good Instructions: Sulfamethoxazole/Trimethoprim (By mouth), Cellulitis (ED), Abscess Incision and Drainage (ED), Abscess (ED) Additional Instructions: Apply warm compresses to site. Follow-up with general surgeon, if unable to get in within 3 days return to emergency department for replacement of packing. Return here immediately for any fever, chills, or any other new, worsening, or concerning symptoms. Prescriptions: Sulfamethox-Tmp 800-160Mg [Bactrim DS 800-160 mg] 1 tab PO Q12HR #20 tab Referrals: None,Stated [Primary Care Provider] - 1-2 days Barber Fenton MD [STAFF PHYSICIAN] - 1-2 days Time of Disposition: 03:55
== END 2016-11-28 04:01 | disposition home or self-care (01) ==
LOC: EC 03:07
DX: L02.414 Cutaneous abscess of left upper limb (principal); L03.114 Cellulitis of left upper limb; K21.9 Gastro-esophageal reflux disease without esophagitis; I10 Essential (primary) hypertension; E07.9 Disorder of thyroid, unspecified; F31.9 Bipolar disorder, unspecified; Z86.14 Personal history of Methicillin resistant Staphylococcus aureus infection; Z87.891 Personal history of nicotine dependence; Z79.899 Other long term (current) drug therapy; Z88.5 Allergy status to narcotic agent
CPT/HCPCS: 10061; 87070; 87205; 99283

== ENCOUNTER 2016-11-29 22:20 | Emergency (ER) | payer OTHER ==
[2016-11-29 22:29] VITALS: BP 136/81; PULSE 86; RESP 18; TEMP 98.1
--- NOTE | 2016-11-29 23:04 | ED ---
General Adult HPI - General Chief complaint: Skin/Abscess/Foreign Body Stated complaint: need dressing change Time Seen by Provider: 11/29/16 22:50 Source: patient, RN notes reviewed, old records reviewed Mode of arrival: ambulatory Limitations: no limitations - History of Present Illness Initial comments: chief complaint history of present illness a 46-year-old male here to have his packing removed from an infected abscess that it was removed an I&D yesterday. Patient states she's had that abscess there for over a year - Related Data Home Medications Medication Instructions Recorded Confirmed Lisinopril 20 mg PO DAILY 01/19/15 10/13/16 HYDROcodone/APAP 10-325MG [[place] 1 tab PO TID PRN 07/19/15 10/13/16 10-325] [place] Carbonate 300 mg PO TID 07/19/15 10/13/16 Levothyroxine Sodium [Synthroid] 125 mcg PO DAILY 05/11/16 10/13/16 ALPRAZolam [Xanax] 1 mg PO TID PRN 10/13/16 10/13/16 Ondansetron [Zofran] 4 mg PO QID PRN 10/13/16 10/13/16 Sucralfate [Carafate] 1 gm PO ACHS 10/13/16 10/13/16 Previous Rx's Medication Instructions Recorded Escitalopram [Lexapro] 20 mg PO DAILY #30 tab 03/07/15 Pantoprazole Sodium [Protonix] 40 mg PO DAILY #35 tablet. 06/23/15 Ranitidine HCl [Zantac] 150 mg PO BID #70 tab 06/23/15 Sulfamethox-Tmp 800-160Mg [Bactrim 1 tab PO Q12HR #20 tab 11/28/16 DS 800-160 mg] Allergies Allergy/AdvReac Type Severity Reaction Status Date / Time propoxyphene napsylate AdvReac Nausea & Verified 10/13/16 18:55 [From Lollyt-N 100] Vomiting Review of Systems ROS Statement: Those systems with pertinent positive or pertinent negative responses have been documented in the HPI. review of systems no other complaints other than wanting to have the drain removed. ROS Other: All systems not noted in ROS Statement are negative. Past Medical History Past Medical History: Eye Disorder, GERD/Reflux, Hypertension, Skin Disorder, Thyroid Disorder Additional Past Medical History / Comment(s): bradycardia, glaucoma left eye, rosacia, peptic ulcer disease, gastritis, duodenitis, chronic back problems. History of Any Multi-Drug Resistant Organisms: MRSA Date of last positivie culture/infection: 2010 MDRO Source:: kim axilla Past Surgical History: Cholecystectomy Additional Past Surgical History / Comment(s): glaucoma eye surgery, EGD with biopsy, left retina sx Additional Past Anesthesia/Blood Transfusion Reaction / Comment(s): has trouble urinating post op Past Psychological History: Anxiety, Bipolar, Depression, Schizophrenia Smoking Status: Former smoker Past Alcohol Use History: None Reported Past Drug Use History: Marijuana - Past Family History Father Additional Family Medical History / Comment(s): Father was pretty healthy-he at age 73 yrs after being struck by a car. Mother Family Medical History: CVA/TIA Additional Family Medical History / Comment(s): Mother in her 60's. General Exam - General Exam Comments Initial Comments: physical exam; vital signs temp 98.1, pulse 86, respiratory rate 18, blood pressure 136/81. Pulse ox 98% room air. pertinent to the patient's visit is here for removal of foreign range iodoform gauze. This is removed. It was repacked with a sterile gauze. The patient be advised to remove tomorrow on the shower to continue treatment at home with frequent showers draining the abscess so it heals from the base. He was told the abscess or sebaceous cyst probably reform them before becomes infected he talked with family physician about having it removed. Limitations: no limitations Course Vital Signs 11/29/16 22:27 Temperature 98.1 F Pulse Rate 86 Respiratory 18 Rate Blood Pressure 136/81 O2 Sat by Pulse 98 Oximetry Medical Decision Making - Medical Decision Making patient strain was removed. Whole kept open with another sterile drain inserted by me. dressing applied Disposition Clinical Impression: Encounter for wound re-check Disposition: HOME SELF-CARE Condition: Good Instructions: Abscess Incision and Drainage (ED) Additional Instructions: removed dressing again tomorrow in the shower. Keep wound open until it heals from the base up. Follow-up with family physician. Referrals: None,Stated [Primary Care Provider] - 1-2 days Time of Disposition: 23:04
== END 2016-11-29 23:17 | disposition home or self-care (01) ==
LOC: EC 22:20
DX: Z48.01 Encounter for change or removal of surgical wound dressing (principal); K21.9 Gastro-esophageal reflux disease without esophagitis; I10 Essential (primary) hypertension; E07.9 Disorder of thyroid, unspecified; F31.9 Bipolar disorder, unspecified; Z86.14 Personal history of Methicillin resistant Staphylococcus aureus infection; Z87.891 Personal history of nicotine dependence; Z79.899 Other long term (current) drug therapy; Z88.5 Allergy status to narcotic agent
CPT/HCPCS: 99283

== ENCOUNTER 2016-12-11 07:04 | Emergency (ER) | payer OTHER ==
[2016-12-11] MEDS ORDERED: ONDANSETRON ODT 4 MG TAB PO STA (07:36)
[2016-12-11] MEDS ORDERED: HYDROcodone/APAP 5-325MG 1 EACH TAB PO STA (07:36)
[2016-12-11] MEDS ORDERED: MAG HYDROX/AL HYDROX/SIMETH 30 ML, HYOSCYAMINE ELIXIR 10 ML, CIMETIDINE HCL 300 MG PO STA ×3 (07:36)
[2016-12-11] MEDS ORDERED: DICYCLOMINE 10 MG/ML 2 ML AMP IM STA (07:36)
--- NOTE | 2016-12-11 07:59 | XR ---
EXAMINATION TYPE: XR abdomen acute w cxr DATE OF EXAM: 12/11/2016 CLINICAL HISTORY: Chest and abdominal pain for a few days. TECHNIQUE: Single frontal view of chest is obtained. Supine, left side down lateral decubitus, and u pright views of the abdomen are acquired. COMPARISON: Chest x-ray October 13, 2016. CT abdomen and pelvis August 05, 2015. FINDINGS: The lungs are grossly clear without pleural effusion or pneumothorax. Underlying emphysem atous change is felt present. Cardiac silhouette size appears within normal limits. Osseous structur es are intact. Gas is noted in nondistended small bowel loops. Gas and fecal material is seen in nondistended colon . Cholecystectomy clips are seen. There is displaced clip into pelvis redemonstrated. There are scatt ered pelvic phleboliths. No pneumoperitoneum is present. Slight scoliotic curvature is redemonstrated . IMPRESSION: 1. Chronic emphysematous change without acute pulmonary acute pulmonary process. 2. Overall nonobstructive bowel gas pattern.
[2016-12-11] MEDS ORDERED: PANTOPRAZOLE 40 MG/10 ML VIAL IVP STA (08:28)
[2016-12-11] MEDS ORDERED: RX INFO: IV CONTRAST WAS GIVEN 1 EACH MISC MISCELLANE PRN (08:28)
[2016-12-11] MEDS ORDERED: MORPHINE SULFATE 4 MG/ML SYRINGE IV STA (08:28)
[2016-12-11] MEDS ORDERED: SODIUM CHLORIDE 0.9% 1,000 ML IV STA ×2 (08:28)
[2016-12-11] MEDS ORDERED: ONDANSETRON 4 MG/2 ML VIAL IVP STA (08:28)
--- NOTE | 2016-12-11 08:40 | ED ---
General Adult HPI - General Chief complaint: Abdominal Pain Stated complaint: abdominal pain Time Seen by Provider: 12/11/16 07:26 Source: patient, RN notes reviewed, old records reviewed Mode of arrival: ambulatory Limitations: no limitations - History of Present Illness Initial comments: This is a 46-year-old male to the ER for reevaluation thumping, severe epigastric abdominal pain. Positive nausea. Patient has history of similar symptoms history of gastritis. Patient does take antihistamines, antacids as well as Carafate at home. Symptoms have been worsening as of late. Patient denies any significant nausea vomiting denies any fevers denies any significant travel history or sick contacts. Patient is past has had prior upper and lower endoscopy. As well as multiple CAT scans. States he has bad history of ulcerative epigastric disease - Related Data Home Medications Medication Instructions Recorded Confirmed Lisinopril 20 mg PO DAILY 01/19/15 12/11/16 HYDROcodone/APAP 10-325MG [[place] 1 tab PO TID PRN 07/19/15 12/11/16 10-325] [place] Carbonate 300 mg PO TID 07/19/15 12/11/16 Levothyroxine Sodium [Synthroid] 125 mcg PO DAILY 05/11/16 12/11/16 Ondansetron [Zofran] 4 mg PO QID PRN 10/13/16 12/11/16 Sucralfate [Carafate] 1 gm PO ACHS 10/13/16 12/11/16 Previous Rx's Medication Instructions Recorded Escitalopram [Lexapro] 20 mg PO DAILY #30 tab 03/07/15 Pantoprazole Sodium [Protonix] 40 mg PO DAILY #35 tablet. 06/23/15 Ranitidine HCl [Zantac] 150 mg PO BID #70 tab 06/23/15 Allergies Allergy/AdvReac Type Severity Reaction Status Date / Time propoxyphene napsylate AdvReac Nausea & Verified 12/11/16 07:54 [From Darjose miguelt-N 100] Vomiting Review of Systems ROS Statement: Those systems with pertinent positive or pertinent negative responses have been documented in the HPI. ROS Other: All systems not noted in ROS Statement are negative. Past Medical History Past Medical History: Eye Disorder, GERD/Reflux, Hypertension, Skin Disorder, Thyroid Disorder Additional Past Medical History / Comment(s): bradycardia, glaucoma left eye, rosacia, peptic ulcer disease, gastritis, duodenitis, chronic back problems. History of Any Multi-Drug Resistant Organisms: MRSA Date of last positivie culture/infection: 2010 MDRO Source:: kim axilla Past Surgical History: Cholecystectomy Additional Past Surgical History / Comment(s): glaucoma eye surgery, EGD with biopsy, left retina sx Additional Past Anesthesia/Blood Transfusion Reaction / Comment(s): has trouble urinating post op Past Psychological History: Anxiety, Bipolar, Depression, Schizophrenia Smoking Status: Former smoker Past Alcohol Use History: None Reported Past Drug Use History: Marijuana - Past Family History Father Additional Family Medical History / Comment(s): Father was pretty healthy-he at age 73 yrs after being struck by a car. Mother Family Medical History: CVA/TIA Additional Family Medical History / Comment(s): Mother in her 60's. General Exam Limitations: no limitations General appearance: alert, in no apparent distress Head exam: Present: atraumatic, normocephalic, normal inspection Eye exam: Present: normal appearance, PERRL, EOMI. Absent: scleral icterus, conjunctival injection, periorbital swelling ENT exam: Present: normal exam, mucous membranes moist Neck exam: Present: normal inspection. Absent: tenderness, meningismus, lymphadenopathy Respiratory exam: Present: normal lung sounds bilaterally. Absent: respiratory distress, wheezes, rales, rhonchi, stridor Cardiovascular Exam: Present: regular rate, normal rhythm, normal heart sounds. Absent: systolic murmur, diastolic murmur, rubs, gallop, clicks GI/Abdominal exam: Present: soft, normal bowel sounds. Absent: distended, tenderness, guarding, rebound, rigid Extremities exam: Present: normal inspection, full ROM, normal capillary refill. Absent: tenderness, pedal edema, joint swelling, calf tenderness Back exam: Present: normal inspection Neurological exam: Present: alert, oriented X3, CN II-XII intact Psychiatric exam: Present: normal affect, normal mood Skin exam: Present: warm, dry, intact, normal color. Absent: rash Course Vital Signs 12/11/16 12/11/16 12/11/16 07:09 09:09 10:00 Temperature 97.5 F L Pulse Rate 94 68 61 Respiratory 18 16 20 Rate Blood Pressure 141/89 122/62 154/75 O2 Sat by Pulse 98 99 99 Oximetry - Reevaluation(s) Reevaluation #1: 12/11/16 08:39 Prior endoscopy and CTs are reviewed Reevaluation #2: 12/11/16 10:[address] Bean, patient's surgeon, who has an upper GI and lower GI on this patient. No further Medical Decision Making - Medical Decision Making 46 male to the the ER for evaluation. Patient presents today for evaluation regarding abdominal pain, history of ulcers. Patient will be discharged home to follow up with gastroenterology. At this time patient is CT Lever is within normal limits 46 LDR for evaluation of bowel pain. History of ulcers, did speak with patient' s surgeon who is aware, patient will be discharged home to follow-up with gastroenterology - Lab Data Result diagrams: 12/11/16 09:00 12/11/16 09:00 Lab Results 12/11/16 12/11/16 12/11/16 Range/Units 09:00 09:00 09:00 WBC 10.9 H (3.8-10.6) k/uL RBC 5.38 (4.30-5.90) m/uL Hgb 16.0 (13.0-17.5) gm/dL Hct 49.1 (39.0-53.0) % MCV 91.4 (80.0-100.0) fL MCH 29.8 (25.0-35.0) pg MCHC 32.6 (31.0-37.0) g/dL RDW 13.5 (11.5-15.5) % Plt Count 334 (150-450) k/uL Neutrophils % 85 % Lymphocytes % 5 % Monocytes % 9 % Eosinophils % 0 % Basophils % 1 % Neutrophils # 9.2 H (1.3-7.7) k/uL Lymphocytes # 0.6 L (1.0-4.8) k/uL Monocytes # 0.9 (0-1.0) k/uL Eosinophils # 0.0 (0-0.7) k/uL Basophils # 0.1 (0-0.2) k/uL Sodium 131 L (137-145) mmol/L Potassium 5.0 (3.5-5.1) mmol/L Chloride 100 (98-107) mmol/L Carbon Dioxide 20 L (22-30) mmol/L Anion Gap 11 mmol/L BUN 23 H (9-20) mg/dL Creatinine 1.19 (0.66-1.25) mg/dL Est GFR (MDRD) Af Amer >60 (>60 ml/min/1.73 sqM) Est GFR (MDRD) Non-Af >60 (>60 ml/min/1.73 sqM) Glucose 108 H (74-99) mg/dL Plasma Lactic Acid Ar (0.7-2.0) mmol/L Calcium 9.7 (8.4-10.2) mg/dL Total Bilirubin 0.6 (0.2-1.3) mg/dL AST 33 (17-59) U/L ALT 43 (21-72) U/L Alkaline Phosphatase 100 (38-126) U/L Total Creatine Kinase 55 (55-170) U/L CK-MB (CK-2) 1.0 (0.0-2.4) ng/mL CK-MB (CK-2) Rel Index 1.8 Troponin I 0.020 (0.000-0.034) ng/mL Total Protein 6.6 (6.3-8.2) g/dL Albumin 4.2 (3.5-5.0) g/dL Amylase <30 L (30-110) U/L Lipase 29 (23-300) U/L 12/11/16 Range/Units 09:00 WBC (3.8-10.6) k/uL RBC (4.30-5.90) m/uL Hgb (13.0-17.5) gm/dL Hct (39.0-53.0) % MCV (80.0-100.0) fL MCH (25.0-35.0) pg MCHC (31.0-37.0) g/dL RDW (11.5-15.5) % Plt Count (150-450) k/uL Neutrophils % % Lymphocytes % % Monocytes % % Eosinophils % % Basophils % % Neutrophils # (1.3-7.7) k/uL Lymphocytes # (1.0-4.8) k/uL Monocytes # (0-1.0) k/uL Eosinophils # (0-0.7) k/uL Basophils # (0-0.2) k/uL Sodium (137-145) mmol/L Potassium (3.5-5.1) mmol/L Chloride (98-107) mmol/L Carbon Dioxide (22-30) mmol/L Anion Gap mmol/L BUN (9-20) mg/dL Creatinine (0.66-1.25) mg/dL Est GFR (MDRD) Af Amer (>60 ml/min/1.73 sqM) Est GFR (MDRD) Non-Af (>60 ml/min/1.73 sqM) Glucose (74-99) mg/dL Plasma Lactic Acid Ar 1.1 (0.7-2.0) mmol/L Calcium (8.4-10.2) mg/dL Total Bilirubin (0.2-1.3) mg/dL AST (17-59) U/L ALT (21-72) U/L Alkaline Phosphatase (38-126) U/L Total Creatine Kinase (55-170) U/L CK-MB (CK-2) (0.0-2.4) ng/mL CK-MB (CK-2) Rel Index Troponin I (0.000-0.034) ng/mL Total Protein (6.3-8.2) g/dL Albumin (3.5-5.0) g/dL Amylase (30-110) U/L Lipase (23-300) U/L - Radiology Data Radiology results: report reviewed (CT abdomen and pelvis is negative for acute disease), image reviewed Disposition Clinical Impression: Abdominal pain Disposition: HOME SELF-CARE Condition: Good Instructions: Abdominal Pain (ED) Referrals: None,Stated [Primary Care Provider] - 1-2 days
[2016-12-11 09:22] LABS: Basophils # (A) 0.1 k/uL (0-0.2); Basophils % (A) 1 %; CH 31.3; CHCM 34.4; Eosinophils % (A) 0 %; HCT 49.1 % (39.0-53.0); HDW 2.34; Luc # (Auto) 0.08; Luc % (Auto) 1; Lymphocytes # (A) 0.6 k/uL (1.0-4.8); Lymphocytes % (A) 5 %; MCH 29.8 pg (25.0-35.0); MCHC 32.6 g/dL (31.0-37.0); MCV 91.4 fL (80.0-100.0); Monocytes # (A) 0.9 k/uL (0-1.0); Monocytes % (A) 9 %; Neutrophils # (A) 9.2 k/uL (1.3-7.7); Neutrophils % (A) 85 %; RBC 5.38 m/uL (4.30-5.90); RDW 13.5 % (11.5-15.5); WBC 10.9 k/uL (3.8-10.6); WBC (Perox) 11.32
[2016-12-11 09:35] LABS: ALT 43 U/L (21-72); AST 33 U/L (17-59); Alkaline Phosphatase 100 U/L (38-126); Amylase <30 U/L (30-110); Anion Gap 11 mmol/L; Blood Urea Nitrogen 23 mg/dL (9-20); Calcium 9.7 mg/dL (8.4-10.2); Carbon Dioxide 20 mmol/L (22-30); Chloride 100 mmol/L (98-107); Glucose 108 mg/dL (74-99); Non-African American GFR(MDRD) >60 (>60 ml/min/1.73 sqM); Sodium 131 mmol/L (137-145); Total Bilirubin 0.6 mg/dL (0.2-1.3); Total Protein 6.6 g/dL (6.3-8.2)
[2016-12-11 09:54] LABS: Troponin I 0.02 ng/mL (0.000-0.034)
--- NOTE | 2016-12-11 09:55 | CT ---
EXAMINATION TYPE: CT abdomen pelvis w con DATE OF EXAM: 12/11/2016 COMPARISON: CT abdomen pelvis August 05, 2015 HISTORY: Abdominal pain, nausea and diarrhea CT DLP: 1496 mGycm, Automated Exposure Control for Dose Reduction was Utilized. CONTRAST: CT scan of the abdomen and pelvis is performed without oral but with IV Contrast, patient injected wi th 100 ml mL of Omnipaque 300. FINDINGS: LUNG BASES: No significant abnormality is appreciated. LIVER/GB: Cholecystectomy clips are redemonstrated. PANCREAS: No significant abnormality is seen. SPLEEN: No significant abnormality is seen. ADRENALS: No significant abnormality is seen. KIDNEYS: No significant abnormality is seen. BOWEL: Evaluation bowel is suboptimal secondary to lack of enteric contrast. There is no suspicious s mall or large bowel dilatation seen. There is mild wall thickening throughout the colon including inv olvement of the terminal ileum. Findings could be product of a poor distention, enterocolitis cannot be excluded. Clinical correlation advised. There are a few scattered diverticula throughout the colon . There is no CT evidence for focal acute diverticulitis. PROSTATE/SEMINAL VESICLES: A few scattered pelvic phleboliths are present. Displaced clip in pelvis i s again seen on axial image 72. LYMPH NODES: No greater than 1cm abdominal or pelvic lymph nodes are appreciated. OSSEOUS STRUCTURES: Spine is straightened on sagittal images. There is disc space narrowing at lumbos acral junction noted. OTHER: No significant additional abnormality is seen. IMPRESSION: 1. Suboptimal study. No bowel obstruction is seen. Cannot exclude mild enterocolitis involving nearly entire colon as well as involvement of terminal ileum. Differential would include infectious and inf lammatory etiologies. Findings also could be product of poor distention. Clinical correlation advised .
[2016-12-11 10:27] VITALS: BP 154/75; RESP 20
[2016-12-11 11:19] VITALS: PULSE 67; TEMP 98
== END 2016-12-11 11:25 | disposition home or self-care (01) ==
LOC: EC 07:04
DX: R10.13 Epigastric pain (principal); R11.0 Nausea; K21.9 Gastro-esophageal reflux disease without esophagitis; I10 Essential (primary) hypertension; E07.9 Disorder of thyroid, unspecified; F31.9 Bipolar disorder, unspecified; F41.9 Anxiety disorder, unspecified; F20.9 Schizophrenia, unspecified; Z87.891 Personal history of nicotine dependence; Z79.899 Other long term (current) drug therapy; Z88.5 Allergy status to narcotic agent; Z90.49 Acquired absence of other specified parts of digestive tract
CPT/HCPCS: 36415; 80053; 82150; 82550; 82553; 83605; 83690; 84484; 85025; 74022; 74177; 99285; 96374; 96375 ×2; 96361 ×2; 96372; J2270; J0500; Q9967; J2405; C9113

== ENCOUNTER → 2017-02-04 | Outpatient (CLI) | payer OTHER ==
--- NOTE | 2017-02-04 23:06 | MR ---
EXAMINATION TYPE: MR lumbar spine wo con DATE OF EXAM: 02/04/2017 COMPARISON: NONE HISTORY: Low back pain for some time TECHNIQUE: Multiplanar, multisequence images of the lumbar spine were acquired. Lumbar vertebra have normal alignment. There is degenerative disc space narrowing throughout the lumb ar spine and more noticeable at L3-4 and L5-S1. There are posterior disc herniations at L1-L2 L2-3 L3 -4 L5-S1. Disc herniation is larger at L3-4 with facet arthropathy and mild to moderate spinal stenos is. There is no compression fracture. There is no paraspinal mass. The lumbar neural foramina are temo rly well-maintained. Sacroiliac joints appear normal. I see no focal bone destruction. IMPRESSION: Multilevel spondylosis. Multilevel posterior lumbar disc herniation is producing a spinal stenosis at L3-4. There is a smaller posterior disc herniation at L5-S1 without significant spinal stenosis.
== END | disposition home or self-care (01) ==
LOC: RADMRIMAIN 20:32
PROVIDERS: ATTEND Psychiatry & Neurology Neurology
DX: M48.061 Spinal stenosis, lumbar region without neurogenic claudication (principal); M51.27 Other intervertebral disc displacement, lumbosacral region; M47.816 Spondylosis without myelopathy or radiculopathy, lumbar region
CPT/HCPCS: 72148

== ENCOUNTER 2019-06-29 08:09 | Day surgery (SDC) | payer OTHER ==
[2019-06-25 12:49] VITALS: BMI 24.7
[~2019-06-29 08:09] MED LIST: LACTATED RINGERS 1,000 ML IV SCH
[2019-06-29 08:44] VITALS: TEMP 97.1
[2019-06-29] MEDS ORDERED: LIDOCAINE 1% (10MG/ML) FOR IV START INTRADERMA ONE (08:47)
[2019-06-29] MEDS ORDERED: LIDOCAINE 1% INJ 10MG/ML (20 ML MDV) ONE (09:29)
[2019-06-29] MEDS ORDERED: PROPOFOL 10 MG/ML 20 ML VIAL IV ONE (09:29)
[2019-06-29 09:51] VITALS: RESP 16
--- NOTE | 2019-06-29 10:01 | P.PCN ---
Date of Procedure: 06/29/19 Procedure(s) Performed: BRIEF HISTORY: Patient is a 48-year-old, pleasant, white male scheduled for an upper endoscopy as part advised him severe epigastric pain, heartburn with dysphagia and odynophagia for the last 2 weeks' duration patient he states that he lost about 15 pounds since onset of the symptoms. As long standing history of GERD and has been on Protonix 40 mg daily as well as Carafate 1 g 4 times daily despite which remains symptomatic. He was seen in office last week and the Protonix was increased to twice daily and is scheduled for an upper endoscopy to evaluate further. PROCEDURE PERFORMED: Esophagogastroduodenoscopy with biopsy. PREOPERATIVE DIAGNOSIS: Severe dysphagia/odynophagia with weight loss of 15 pounds in the last 2-3 weeks' duration. Long standing history of GERD. IV sedation per anesthesia. PROCEDURE: After informed consent was obtained, the patient was brought into the endoscopy unit. IV sedation was administered by Anesthesia under continuous monitoring. Initially the Olympus GIF-140 video endoscope was inserted into the mouth. Esophagus intubated without any difficulty. It was gradually advanced into the stomach and duodenum and carefully examined. The bulb and the second part of the duodenum appeared normal. The scope at this time was withdrawn to the stomach, adequately insufflated with air, and upon careful examination, mucosa of the antrum, had a 1.5 cm raised lesion with central depression and severe mucosa suspicious for ectopic pancreas and multiple biopsies were done. The body, cardia and the fundus appeared normal. The scope was then withdrawn into the esophagus. The GE junction was located at 39 cm from the incisors. There were linear erosions in the distal esophagus consistent with LA grade B reflux esophagitis. No esophageal stricture identified. \Biopsies were done from the distal esophagus. The rest of esophagus appeared normal and the patient tolerated the procedure well. IMPRESSION: 1. Linear erosions in the distal esophagus consistent with LA grade B reflux esophagitis. 2. 1.5 cm raised lesion with central depression in the antrum of the stomach suspicious for ectopic pancreas. Status post biopsies. RECOMMENDATIONS: The findings of this examination were discussed with the patient as well as his family. He will remain on Protonix 40 mg twice daily as well as Carafate 1 g 4 times daily. He'll be seen in office in 6 weeks. In the meantime he was advised to follow with the biopsy results.].
[2019-06-29 10:04] VITALS: BP 138/82; PULSE 62
== END 2019-06-29 10:48 | disposition home or self-care (01) ==
LOC: ORWHC2ENDO 08:09
PROVIDERS: ATTEND Internal Medicine Gastroenterology
DX: K29.50 Unspecified chronic gastritis without bleeding (principal); K21.0 Gastro-esophageal reflux disease with esophagitis; K22.10 Ulcer of esophagus without bleeding; K31.7 Polyp of stomach and duodenum; Z88.5 Allergy status to narcotic agent; Z79.890 Hormone replacement therapy; Z79.899 Other long term (current) drug therapy
CPT/HCPCS: 88305; 88342; 43239; J2001; J2704

== ENCOUNTER → 2019-12-08 | Outpatient (CLI) | payer OTHER ==
[2019-12-08 07:45] LABS: HCT 38.2 % (39.0-53.0); HGB 12.3 gm/dL (13.0-17.5); MCH 29.3 pg (25.0-35.0); MCHC 32.3 g/dL (31.0-37.0); MCV 90.8 fL (80.0-100.0); Mean Platelet Volume 7.4; Platelet Count 273 k/uL (150-450); RBC 4.21 m/uL (4.30-5.90); RDW 13.6 % (11.5-15.5); WBC 5.5 k/uL (3.8-10.6)
[2019-12-08 11:02] LABS: African American GFR (CKD) 120.7 (60.0-200.0); Albumin/Globulin Ratio 3.08 (1.60-3.17); BUN/Creat Ratio 12.5 Ratio (12.00-20.00); Globulin 1.3 g/dL (1.6-3.3); Non-African American GFR(CKD) 104.2 (60.0-200.0); Potassium 4.4 mmol/L (3.5-5.5); Total Bilirubin 0.2 mg/dL (0.2-1.2); Total Protein 5.3 g/dL (6.2-8.2)
== END | disposition home or self-care (01) ==
LOC: LABWHC1 07:24
PROVIDERS: ATTEND Physician Assistant
DX: G62.9 Polyneuropathy, unspecified (principal)
CPT/HCPCS: 36415; 80053; 82306; 82607; 84207; 84439; 84443; 84481; 85027

== ENCOUNTER 2022-08-13 06:51 | Emergency (ER) | payer OTHER ==
[2022-08-13 07:02] VITALS: RESP 18
[2022-08-13] MEDS ORDERED: SODIUM CHLORIDE 0.9% 1,000 ML IV STA (07:15)
[2022-08-13] MEDS ORDERED: ONDANSETRON 4 MG/2 ML VIAL IVP STA (07:15)
[2022-08-13] MEDS ORDERED: SODIUM CHLORIDE 0.9% 500 ML 500 ML IV STA (07:15)
[2022-08-13] MEDS ORDERED: DIPHENOX-ATROP 2.5-0.025 MG 1 EACH TAB PO STA ×2 (07:15→08:33)
--- NOTE | 2022-08-13 07:18 | ED ---
General Adult HPI - General Chief complaint: Nausea/Vomiting/Diarrhea Stated complaint: NVD Time Seen by Provider: 08/13/22 07:00 Source: patient, EMS, RN notes reviewed, old records reviewed Mode of arrival: EMS Limitations: no limitations - History of Present Illness Initial comments: This a 52-year-old male who was camping last night about 8:00 last night he started becoming nauseous and started vomiting. Patient states he then started having quite a bit of diarrhea. Patient states continued throughout the night and now he feels dehydrated. Patient states he had abdominal cramping but no specific abdominal pain. Patient denies any chest pain difficulty breathing shortness of breath. Patient denies any fever chills or cough. Patient denies any back pain. Patient denies any other symptoms at this time. - Related Data Home Medications Medication Instructions Recorded Confirmed Levothyroxine Sodium [Synthroid] 125 mcg PO DAILY 05/11/16 06/29/19 Ondansetron [Zofran] 4 mg PO QID PRN 10/13/16 06/29/19 Sucralfate [Carafate] 1 gm PO ACHS 10/13/16 06/29/19 Gabapentin [Neurontin] 900 mg PO TID 06/25/19 06/29/19 HYDROcodone/APAP 10-325MG [[place] 1 tab PO TID PRN 06/25/19 06/29/19 10-325] Pantoprazole Sodium [Protonix] 40 mg PO BID 06/25/19 06/29/19 busPIRone HCl [Buspar] 5 mg PO BID 06/25/19 06/29/19 Allergies Allergy/AdvReac Type Severity Reaction Status Date / Time propoxyphene napsylate AdvReac Nausea & Verified 06/29/19 08:38 [From Darvocet-N 100] Vomiting Review of Systems ROS Statement: Those systems with pertinent positive or pertinent negative responses have been documented in the HPI. ROS Other: All systems not noted in ROS Statement are negative. Past Medical History Past Medical History: Eye Disorder, GERD/Reflux, Hypertension, Skin Disorder, Thyroid Disorder Additional Past Medical History / Comment(s): bradycardia, glaucoma left eye, rosacea, peptic ulcer disease, gastritis, duodenitis, chronic back problems, hiatal hernia History of Any Multi-Drug Resistant Organisms: MRSA Date of last positivie culture/infection: 2010 MDRO Source:: kim axilla Past Surgical History: Cholecystectomy Additional Past Surgical History / Comment(s): glaucoma eye surgery, EGD with biopsy, left retina sx Additional Past Anesthesia/Blood Transfusion Reaction / Comment(s): has trouble urinating post op Past Psychological History: Anxiety, Bipolar, Depression, Schizophrenia Additional Psychological History / Comment(s): . Past Alcohol Use History: None Reported Additional Past Alcohol Use History / Comment(s): Pt smoked from age 16 until age 21 when he quit. [id number], SMOKED 1-2PPD Past Drug Use History: Marijuana Additional Drug Use History / Comment(s): Pt states he does smoke marijuana on occasion for pain control. - Past Family History Father Additional Family Medical History / Comment(s): Father was pretty healthy-he at age 73 yrs after being struck by a car. Mother Family Medical History: CVA/TIA Additional Family Medical History / Comment(s): Mother in her 60's. General Exam - General Exam Comments Initial Comments: GENERAL: Patient is well-developed and well-nourished. Patient is nontoxic and well- hydrated and is in mild distress. ENT: Neck is soft and supple. No significant lymphadenopathy is noted. Oropharynx is clear. Moist mucous membranes. Neck has full range of motion without eliciting any pain. EYES: The sclera were anicteric and conjunctiva were pink and moist. Extraocular movements were intact and pupils were equal round and reactive to light. Eyelids were unremarkable. PULMONARY: Unlabored respirations. Good breath sounds bilaterally. No audible rales rho nchi or wheezing was noted. CARDIOVASCULAR: There is a regular rate and rhythm without any murmurs gallops or rubs. ABDOMEN: Soft and nontender with normal bowel sounds. SKIN: Skin is clear with no lesions or rashes and otherwise unremarkable. NEUROLOGIC: Patient is alert and oriented x3. Cranial nerves II through XII are grossly intact. Motor and sensory are also intact. Normal speech, volume and content. Symmetrical smile. MUSCULOSKELETAL: Normal extremities with adequate strength and full range of motion. LYMPHATICS: No significant lymphadenopathy is noted PSYCHIATRIC: Normal psychiatric evaluation. Limitations: no limitations Course Vital Signs 08/13/22 08/13/22 08/13/22 06:57 07:30 08:00 Temperature 97.4 F L Pulse Rate 63 98 97 Respiratory 18 18 18 Rate Blood Pressure 175/104 146/101 159/105 O2 Sat by Pulse 10 L 99 99 Oximetry 08/13/22 08:30 Temperature 97.8 F Pulse Rate 95 Respiratory 18 Rate Blood Pressure 163/100 O2 Sat by Pulse 99 Oximetry Medical Decision Making - Medical Decision Making Was pt. sent in by a medical professional or institution (, PA, OUTPATIENT PHLEBOTOMIST, urgent care, hospital, or [place] [facility] facility...) When possible be specific @ -No Did you speak to anyone other than the patient for history (EMS, parent, family, police, friend...)? What history was obtained from this source @ -No Did you review nursing and triage notes (agree or disagree)? Why? @ -I reviewed and agree with nursing and triage notes Were old charts reviewed (outside hosp., previous admission, EMS record, old EKG, old radiological studies, urgent care reports/EKG's, [place] health care facility records)? Report findings @ -No old charts were reviewed Differential Diagnosis (chest pain, altered mental status, abdominal pain women, abdominal pain men, vaginal bleeding, weakness, fever, dyspnea, syncope, headache, dizziness, GI bleed, back pain, seizure, CVA, palpatations, mental health, musculoskeletal)? @ -Differential Abdominal Pain Men: Appendicitis, cholecystitis, diverticulosis, ischemic bowel, pancreatitis, hepatitis, UTI, gastroenteritis, AAA, incarcerated hernia, bowel obstruction, constipation, inflammatory bowel, hepatitis, peptic ulcer disease, splenic infarction, perforated viscus, testicular torsion, this is not meant to be an all-inclusive list EKG interpreted by me (3pts min.). @ -As above X-rays interpreted by me (1pt min.). @ -None done CT interpreted by me (1pt min.). @ -None done U/S interpreted by me (1pt. min.). @ -None done What testing was considered but not performed or refused? (CT, X-rays, U/S, labs)? Why? @ -None What meds were considered but not given or refused? Why? @ -None Did you discuss the management of the patient with other professionals (professionals i.e. , PA, OUTPATIENT PHLEBOTOMIST, lab, RT, psych nurse, high school social science teacher, painting department supervisor, teacher, hydrographical technical officer, piano case maker)? Give summary @ -No Was smoking cessation discussed for >3mins.? @ -No Was critical care preformed (if so, how long)? @ -No Were there social determinants of health that impacted care today? How? (Homelessness, low income, unemployed, alcoholism, drug addiction, transportation, low edu. Level, literacy, decrease access to med. care, senior living, rehab)? @ -No Was there de-escalation of care discussed even if they declined (Discuss DNR or withdrawal of care, Hospice)? DNR status @ -No What co-morbidities impacted this encounter? (DM, HTN, Smoking, COPD, CAD, Cancer, CVA, ARF, Chemo, Hep., AIDS, mental health diagnosis, sleep apnea, morbid obesity)? @ -None Was patient admitted / discharged? Hospital course, mention meds given and route, prescriptions, significant lab abnormalities, going to OR and other pertinent info. @ -She received Lomotil and Zofran in the hospital and a liter and a half normal saline. Patient had no vomiting or diarrhea in the emergency department. Lab work came back I discussed with the patient I sent the patient home on Lomotil and Zofran Undiagnosed new problem with uncertain prognosis? @ -No Drug Therapy requiring intensive monitoring for toxicity (Heparin, Nitro, Insulin, Cardizem)? @ -No Were any procedures done? @ -No Diagnosis/symptom? @ -Gastroenteritis Acute, or Chronic, or Acute on Chronic? @ -Acute Uncomplicated (without systemic symptoms) or Complicated (systemic symptoms)? @ -Uncomplicated Side effects of treatment? @ -No Exacerbation, Progression, or Severe Exacerbation? @ -No Poses a threat to life or bodily function? How? (Chest pain, USA, [place], pneumonia, PE, COPD, DKA, ARF, appy, cholecystitis, CVA, Diverticulitis, Homicidal, Suicidal, threat to staff... and all critical care pts) @ -No - Lab Data Result diagrams: 08/13/22 07:18 08/13/22 07:18 Lab Results 08/13/22 08/13/22 Range/Units 07:18 07:18 WBC 10.3 (3.8-10.6) k/uL RBC 4.97 (4.30-5.90) m/uL Hgb 14.4 (13.0-17.5) gm/dL Hct 43.3 (39.0-53.0) % MCV 87.1 (80.0-100.0) fL MCH 29.1 (25.0-35.0) pg MCHC 33.4 (31.0-37.0) g/dL RDW 12.8 (11.5-15.5) % Plt Count 272 (150-450) k/uL MPV 8.4 Neutrophils % 91 % Lymphocytes % 3 % Monocytes % 4 % Eosinophils % 1 % Basophils % 0 % Neutrophils # 9.4 H (1.3-7.7) k/uL Lymphocytes # 0.3 L (1.0-4.8) k/uL Monocytes # 0.4 (0-1.0) k/uL Eosinophils # 0.1 (0-0.7) k/uL Basophils # 0.0 (0-0.2) k/uL Sodium 138 (137-145) mmol/L Potassium 3.8 (3.5-5.1) mmol/L Chloride 106 (98-107) mmol/L Carbon Dioxide 20 L (22-30) mmol/L Anion Gap 12 mmol/L BUN 18 (9-20) mg/dL Creatinine 0.62 L (0.66-1.25) mg/dL Est GFR (CKD-EPI)AfAm >90 (>60 ml/min/1.73 sqM) Est GFR (CKD-EPI)NonAf >90 (>60 ml/min/1.73 sqM) Glucose 150 H (74-99) mg/dL Calcium 9.5 (8.4-10.2) mg/dL Total Bilirubin 0.8 (0.2-1.3) mg/dL AST 43 (17-59) U/L ALT 35 (4-49) U/L Alkaline Phosphatase 136 H (38-126) U/L Total Protein 7.0 (6.3-8.2) g/dL Albumin 4.4 (3.5-5.0) g/dL Amylase 32 (30-110) U/L Lipase 27 (23-300) U/L Disposition Clinical Impression: Gastroenteritis Disposition: HOME SELF-CARE Instructions (If sedation given, give patient instructions): Gastroenteritis (ED) Is patient prescribed a controlled substance at d/c from ED?: No Referrals: Yajaira Manley DO [Primary Care Provider] - 1-2 days
[2022-08-13 07:42] LABS: Basophils % (A) 0 %; Eosinophils # (A) 0.1 k/uL (0-0.7); Eosinophils % (A) 1 %; HCT 43.3 % (39.0-53.0); HGB 14.4 gm/dL (13.0-17.5); Lymphocytes # (A) 0.3 k/uL (1.0-4.8); Lymphocytes % (A) 3 %; MCH 29.1 pg (25.0-35.0); MCHC 33.4 g/dL (31.0-37.0); MCV 87.1 fL (80.0-100.0); Mean Platelet Volume 8.4; Monocytes # (A) 0.4 k/uL (0-1.0); Monocytes % (A) 4 %; Neutrophils # (A) 9.4 k/uL (1.3-7.7); Neutrophils % (A) 91 %; Platelet Count 272 k/uL (150-450); RBC 4.97 m/uL (4.30-5.90); RDW 12.8 % (11.5-15.5); WBC 10.3 k/uL (3.8-10.6)
[2022-08-13 08:08] LABS: AST 43 U/L (17-59); African American GFR (CKD) >90 (>60 ml/min/1.73 sqM); Albumin 4.4 g/dL (3.5-5.0); Amylase 32 U/L (30-110); Anion Gap 12 mmol/L; Blood Urea Nitrogen 18 mg/dL (9-20); Calcium 9.5 mg/dL (8.4-10.2); Carbon Dioxide 20 mmol/L (22-30); Chloride 106 mmol/L (98-107); Glucose 150 mg/dL (74-99); Non-African American GFR(CKD) >90 (>60 ml/min/1.73 sqM); Potassium 3.8 mmol/L (3.5-5.1); Sodium 138 mmol/L (137-145); Total Bilirubin 0.8 mg/dL (0.2-1.3)
[2022-08-13 08:09] LABS: ALT 35 U/L (4-49); Alkaline Phosphatase 136 U/L (38-126); Lipase 27 U/L (23-300)
[2022-08-13] MEDS ORDERED: DIPHENOX-ATROP STARTER PACK 8 TAB BTL PO STA (08:35)
[2022-08-13] MEDS ORDERED: ONDANSETRON 4 MG ODT STARTER PACK 2 TAB BTL PO STA (08:35)
[2022-08-13 08:50] VITALS: BP 163/100; PULSE 95; TEMP 97.8
== END 2022-08-13 08:57 | disposition home or self-care (01) ==
LOC: EC 06:51
DX: K52.9 Noninfective gastroenteritis and colitis, unspecified (principal); K21.9 Gastro-esophageal reflux disease without esophagitis; I10 Essential (primary) hypertension; E07.9 Disorder of thyroid, unspecified; F41.9 Anxiety disorder, unspecified; F31.9 Bipolar disorder, unspecified; F12.90 Cannabis use, unspecified, uncomplicated; Z88.8 Allergy status to other drugs, medicaments and biological substances; Z79.890 Hormone replacement therapy; Z79.899 Other long term (current) drug therapy
CPT/HCPCS: 36415; 80053; 82150; 83690; 85025; 99284; 96374; 96361; J2405; S0119

== ENCOUNTER 2023-04-24 06:58 | Emergency (ER) | payer OTHER ==
[2023-04-24 07:05] VITALS: TEMP 98.4
--- NOTE | 2023-04-24 07:20 | ED ---
Abdominal Pain HPI - General Chief Complaint: Abdominal Pain Stated Complaint: Abdominal Pain Time Seen by Provider: 04/24/23 07:01 Source: patient, EMS, RN notes reviewed Mode of arrival: EMS Limitations: no limitations - History of Present Illness Initial Comments: 52-year-old male presents emergency department with chief complaint of epigastric pain. Patient states started yesterday. Patient states she has had some nausea, body aches chills cough and congestion. Patient states that he was exposed to somebody has pneumonia. Patient denies any change of all habits no dysuria patient has not taken medications to help with symptoms. - Related Data Home Medications Medication Instructions Recorded Confirmed Levothyroxine Sodium [Synthroid] 125 mcg PO DAILY 05/11/16 06/29/19 Ondansetron [Zofran] 4 mg PO QID PRN 10/13/16 06/29/19 Sucralfate [Carafate] 1 gm PO ACHS 10/13/16 06/29/19 Gabapentin [Neurontin] 900 mg PO TID 06/25/19 06/29/19 HYDROcodone/APAP 10-325MG [[place] 1 tab PO TID PRN 06/25/19 06/29/19 10-325] Pantoprazole Sodium [Protonix] 40 mg PO BID 06/25/19 06/29/19 busPIRone HCl [Buspar] 5 mg PO BID 06/25/19 06/29/19 Previous Rx's Medication Instructions Recorded Famotidine [Pepcid] 20 mg PO BID #14 tablet 04/24/23 Ondansetron Odt [Zofran Odt] 4 mg PO Q8HR PRN #10 tab 04/24/23 Allergies Allergy/AdvReac Type Severity Reaction Status Date / Time propoxyphene napsylate AdvReac Nausea & Verified 06/29/19 08:38 [From Darvocet-N 100] Vomiting Review of Systems ROS Statement: Those systems with pertinent positive or pertinent negative responses have been documented in the HPI. ROS Other: All systems not noted in ROS Statement are negative. Past Medical History Past Medical History: Eye Disorder, GERD/Reflux, Hypertension, Skin Disorder, Thyroid Disorder Additional Past Medical History / Comment(s): bradycardia, glaucoma left eye, rosacea, peptic ulcer disease, gastritis, duodenitis, chronic back problems, hiatal hernia History of Any Multi-Drug Resistant Organisms: MRSA Date of last positivie culture/infection: 2010 MDRO Source:: kim axilla Past Surgical History: Cholecystectomy Additional Past Surgical History / Comment(s): glaucoma eye surgery, EGD with biopsy, left retina sx Additional Past Anesthesia/Blood Transfusion Reaction / Comment(s): has trouble urinating post op Past Psychological History: Anxiety, Bipolar, Depression, Schizophrenia Smoking Status: Never smoker Past Alcohol Use History: None Reported Past Drug Use History: Marijuana - Past Family History Father Additional Family Medical History / Comment(s): Father was pretty healthy-he at age 73 yrs after being struck by a car. Mother Family Medical History: CVA/TIA Additional Family Medical History / Comment(s): Mother in her 60's. General Exam Limitations: no limitations General appearance: alert, in no apparent distress Head exam: Present: atraumatic, normocephalic, normal inspection Eye exam: Present: normal appearance, PERRL, EOMI. Absent: scleral icterus, conjunctival injection, periorbital swelling ENT exam: Present: normal exam, mucous membranes moist Neck exam: Present: normal inspection. Absent: tenderness, meningismus, ly mphadenopathy Respiratory exam: Present: normal lung sounds bilaterally. Absent: respiratory distress, wheezes, rales, rhonchi, stridor Cardiovascular Exam: Present: regular rate, normal rhythm, normal heart sounds. Absent: systolic murmur, diastolic murmur, rubs, gallop, clicks GI/Abdominal exam: Present: soft, tenderness, normal bowel sounds. Absent: distended, guarding, rebound, rigid Back exam: Absent: CVA tenderness (R), CVA tenderness (L) Neurological exam: Present: alert Course Vital Signs 04/24/23 04/24/23 07:01 09:17 Temperature 98.4 F Pulse Rate 63 78 Respiratory 17 18 Rate Blood Pressure 159/107 134/112 O2 Sat by Pulse 98 97 Oximetry Medical Decision Making - Medical Decision Making Was pt. sent in by a medical professional or institution (, PA, METAL MODEL MAKER, urgent care, hospital, or [facility]...) When possible be specific @ -No Did you speak to anyone other than the patient for history (EMS, parent, family, police, friend...)? What history was obtained from this source @ -No Did you review nursing and triage notes (agree or disagree)? Why? @ -I reviewed and agree with nursing and triage notes Were old charts reviewed (outside hosp., previous admission, EMS record, old EKG, old radiological studies, urgent care reports/EKG's, [facility] records)? Report findings @ -[Review of prior laboratory studies Differential Diagnosis (chest pain, altered mental status, abdominal pain women, abdominal pain men, vaginal bleeding, weakness, fever, dyspnea, syncope, headache, dizziness, GI bleed, back pain, seizure, CVA, palpatations, mental health, musculoskeletal)? @ -Differential Abdominal Pain Men: Appendicitis, cholecystitis, diverticulosis, ischemic bowel, pancreatitis, hepatitis, UTI, gastroenteritis, AAA, incarcerated hernia, bowel obstruction, constipation, inflammatory bowel, hepatitis, peptic ulcer disease, splenic infarction, perforated viscus, testicular torsion, this is not meant to be an all-inclusive list EKG interpreted by me (3pts min.). @ -[None X-rays interpreted by me (1pt min.). @ -Chest x-ray shows no acute cardiopulmonary process CT interpreted by me (1pt min.). @ -[None done U/S interpreted by me (1pt. min.). @ -None done What testing was considered but not performed or refused? (CT, X-rays, U/S, labs)? Why? @ -None What meds were considered but not given or refused? Why? @ -None Did you discuss the management of the patient with other professionals (professionals i.e. , PA, METAL MODEL MAKER, lab, RT, psych nurse, social services designee, ophthalmic medical assistant, teacher, identification officer, case hardener)? Give summary @ -No Was smoking cessation discussed for >3mins.? @ -No Was critical care preformed (if so, how long)? @ -No Were there social determinants of health that impacted care today? How? (Homelessness, low income, unemployed, alcoholism, drug addiction, transportation, low edu. Level, literacy, decrease access to med. care, custodial, rehab)? @ -No Was there de-escalation of care discussed even if they declined (Discuss DNR or withdrawal of care, Hospice)? DNR status @ -No What co-morbidities impacted this encounter? (DM, HTN, Smoking, COPD, CAD, Cancer, CVA, ARF, Chemo, Hep., AIDS, mental health diagnosis, sleep apnea, morbid obesity)? @ -[GERD Was patient admitted / discharged? Hospital course, mention meds given and route, prescriptions, significant lab abnormalities, going to OR and other pertinent info. @ -Discharge patient feels great improved after antiemetics, GI cocktail. Patient did show moderate signs of dehydration with 3+ ketones. Patient was given fluid bolus. Patient is requesting to be discharged as he feels improved. Patient has no localized abdominal pain at this time. Undiagnosed new problem with uncertain prognosis? @ -[No Drug Therapy requiring intensive monitoring for toxicity (Heparin, Nitro, Insulin, Cardizem)? @ -No Were any procedures done? @ -No Diagnosis/symptom? @ -[GERD, nausea Acute, or Chronic, or Acute on Chronic? @ -Acute Uncomplicated (without systemic symptoms) or Complicated (systemic symptoms)? @ -Uncomplicated Side effects of treatment? @ -[No Exacerbation, Progression, or Severe Exacerbation? @ -No Poses a threat to life or bodily function? How? (Chest pain, [place], [place], pneumonia, PE, COPD, DKA, ARF, appy, cholecystitis, CVA, Diverticulitis, Homicidal, Suicidal, threat to staff... and all critical care pts) @ -No - Lab Data Result diagrams: 04/24/23 07:45 04/24/23 07:45 Lab Results 04/24/23 04/24/23 04/24/23 Range/Units 07:45 07:45 07:45 WBC 8.4 (3.8-10.6) k/uL RBC 5.29 (4.30-5.90) m/uL Hgb 15.5 (13.0-17.5) gm/dL Hct 47.5 (39.0-53.0) % MCV 89.7 (80.0-100.0) fL MCH 29.3 (25.0-35.0) pg MCHC 32.6 (31.0-37.0) g/dL RDW 12.5 (11.5-15.5) % Plt Count 319 (150-450) k/uL MPV 8.6 Neutrophils % 84 % Lymphocytes % 8 % Monocytes % 6 % Eosinophils % 1 % Basophils % 1 % Neutrophils # 7.1 (1.3-7.7) k/uL Lymphocytes # 0.7 L (1.0-4.8) k/uL Monocytes # 0.5 (0-1.0) k/uL Eosinophils # 0.1 (0-0.7) k/uL Basophils # 0.1 (0-0.2) k/uL Sodium 137 (137-145) mmol/L Potassium 4.1 (3.5-5.1) mmol/L Chloride 108 H (98-107) mmol/L Carbon Dioxide 23 (22-30) mmol/L Anion Gap 6 mmol/L BUN 16 (9-20) mg/dL Creatinine 0.68 (0.66-1.25) mg/dL Est GFR (CKD-EPI)AfAm >90 (>60 ml/min/1.73 sqM) Est GFR (CKD-EPI)NonAf >90 (>60 ml/min/1.73 sqM) Glucose 121 H (74-99) mg/dL Plasma Lactic Acid Ar (0.7-2.0) mmol/L Calcium 9.8 (8.4-10.2) mg/dL Total Bilirubin 0.7 (0.2-1.3) mg/dL AST 40 (17-59) U/L ALT 54 H (4-49) U/L Alkaline Phosphatase 135 H (38-126) U/L Total Protein 6.9 (6.3-8.2) g/dL Albumin 4.3 (3.5-5.0) g/dL Lipase 30 (23-300) U/L Urine Color Yellow Urine Appearance Clear (Clear) Urine pH 6.5 (5.0-8.0) Ur Specific [place] 1.018 (1.001-1.035) Urine Protein Trace H (Negative) Urine Glucose (UA) Negative (Negative) Urine Ketones 3+ H (Negative) Urine Blood Negative (Negative) Urine Nitrite Negative (Negative) Urine Bilirubin Negative (Negative) Urine Urobilinogen <2.0 (<2.0) mg/dL Ur Leukocyte Esterase Negative (Negative) Influenza Type A (PCR) (Not Detectd) Influenza Type B (PCR) (Not Detectd) RSV (PCR) (Not Detectd) SARS-CoV-2 (PCR) (Not Detectd) 04/24/23 04/24/23 Range/Units 07:45 07:45 WBC (3.8-10.6) k/uL RBC (4.30-5.90) m/uL Hgb (13.0-17.5) gm/dL Hct (39.0-53.0) % MCV (80.0-100.0) fL MCH (25.0-35.0) pg MCHC (31.0-37.0) g/dL RDW (11.5-15.5) % Plt Count (150-450) k/uL MPV Neutrophils % % Lymphocytes % % Monocytes % % Eosinophils % % Basophils % % Neutrophils # (1.3-7.7) k/uL Lymphocytes # (1.0-4.8) k/uL Monocytes # (0-1.0) k/uL Eosinophils # (0-0.7) k/uL Basophils # (0-0.2) k/uL Sodium (137-145) mmol/L Potassium (3.5-5.1) mmol/L Chloride (98-107) mmol/L Carbon Dioxide (22-30) mmol/L Anion Gap mmol/L BUN (9-20) mg/dL Creatinine (0.66-1.25) mg/dL Est GFR (CKD-EPI)AfAm (>60 ml/min/1.73 sqM) Est GFR (CKD-EPI)NonAf (>60 ml/min/1.73 sqM) Glucose (74-99) mg/dL Plasma Lactic Acid Ar 1.0 (0.7-2.0) mmol/L Calcium (8.4-10.2) mg/dL Total Bilirubin (0.2-1.3) mg/dL AST (17-59) U/L ALT (4-49) U/L Alkaline Phosphatase (38-126) U/L Total Protein (6.3-8.2) g/dL Albumin (3.5-5.0) g/dL Lipase (23-300) U/L Urine Color Urine Appearance (Clear) Urine pH (5.0-8.0) Ur Specific [place] (1.001-1.035) Urine Protein (Negative) Urine Glucose (UA) (Negative) Urine Ketones (Negative) Urine Blood (Negative) Urine Nitrite (Negative) Urine Bilirubin (Negative) Urine Urobilinogen (<2.0) mg/dL Ur Leukocyte Esterase (Negative) Influenza Type A (PCR) Not Detected (Not Detectd) Influenza Type B (PCR) Not Detected (Not Detectd) RSV (PCR) Not Detected (Not Detectd) SARS-CoV-2 (PCR) Not Detected (Not Detectd) Disposition Clinical Impression: GERD (gastroesophageal reflux disease), Nausea, Dehydration Disposition: HOME SELF-CARE Condition: Stable Instructions (If sedation given, give patient instructions): GERD (Franco roesophageal Reflux Disease) (ED) Additional Instructions: Please return to the Emergency Department if symptoms worsen or any other concerns. Prescriptions: Famotidine [Pepcid] 20 mg PO BID #14 tablet Ondansetron Odt [Zofran Odt] 4 mg PO Q8HR PRN #10 tab PRN Reason: Nausea Is patient prescribed a controlled substance at d/c from ED?: No Referrals: Yajaira Manley DO [Primary Care Provider] - 1-2 days Time of Disposition: 09:01
--- NOTE | 2023-04-24 07:44 | XR ---
EXAMINATION TYPE: XR chest 2V DATE OF EXAM: 04/24/2023 7:35 AM CLINICAL INDICATION:Male, 52 years old with history of pain; H COMPARISON: Chest radiographs from and [id number] TECHNIQUE: XR chest 2V Frontal and lateral views of the chest. FINDINGS: Lungs/Pleura: There is no evidence of pleural effusion, focal consolidation, or pneumothorax. Pulmonary vascularity: Unremarkable. Heart/mediastinum: Cardiomediastinal silhouette is unremarkable. Musculoskeletal: No acute osseous pathology. IMPRESSION: 1. No acute cardiopulmonary disease process. 2. COPD changes.
[2023-04-24] MEDS: diphenhydrAMINE 50 MG/ML 1 ML VIAL IVP STA (07:53)
[2023-04-24] MEDS: METOCLOPRAMIDE 5 MG/ML 2 ML VIAL IVP STA (07:53)
[2023-04-24] MEDS: MAG HYDROX/AL HYDROX/SIMETH 30 ML, HYOSCYAMINE ELIXIR 10 ML PO STA (07:53)
[2023-04-24] MEDS: SODIUM CHLORIDE 0.9% 1,000 ML IV STA (07:53)
[2023-04-24 07:55] LABS: Basophils # (A) 0.1 k/uL (0-0.2); Basophils % (A) 1 %; Eosinophils # (A) 0.1 k/uL (0-0.7); Eosinophils % (A) 1 %; HCT 47.5 % (39.0-53.0); HGB 15.5 gm/dL (13.0-17.5); Lymphocytes # (A) 0.7 k/uL (1.0-4.8); Lymphocytes % (A) 8 %; MCH 29.3 pg (25.0-35.0); MCHC 32.6 g/dL (31.0-37.0); MCV 89.7 fL (80.0-100.0); Mean Platelet Volume 8.6; Monocytes # (A) 0.5 k/uL (0-1.0); Monocytes % (A) 6 %; Neutrophils # (A) 7.1 k/uL (1.3-7.7); Neutrophils % (A) 84 %; Platelet Count 319 k/uL (150-450); RBC 5.29 m/uL (4.30-5.90); RDW 12.5 % (11.5-15.5); WBC 8.4 k/uL (3.8-10.6)
[2023-04-24 08:04] LABS: ALT 54 U/L (4-49); AST 40 U/L (17-59); African American GFR (CKD) >90 (>60 ml/min/1.73 sqM); Albumin 4.3 g/dL (3.5-5.0); Alkaline Phosphatase 135 U/L (38-126); Anion Gap 6 mmol/L; Appearance,Urine Clear (Clear); Bilirubin,Urine Negative (Negative); Blood Urea Nitrogen 16 mg/dL (9-20); Blood,Urine Negative (Negative); Calcium 9.8 mg/dL (8.4-10.2); Carbon Dioxide 23 mmol/L (22-30); Chloride 108 mmol/L (98-107); Color,Urine Yellow; Glucose 121 mg/dL (74-99); Glucose,Urine (UA) Negative (Negative); Ketones,Urine 3+ (Negative); Leukocyte Esterase,Urine Negative (Negative); Lipase 30 U/L (23-300); Nitrite,Urine Negative (Negative); Non-African American GFR(CKD) >90 (>60 ml/min/1.73 sqM); PH, Urine 6.5 (5.0-8.0); Potassium 4.1 mmol/L (3.5-5.1); Protein,Urine Trace (Negative); Sodium 137 mmol/L (137-145); Specific Gravity,Urine 1.018 (1.001-1.035); Total Bilirubin 0.7 mg/dL (0.2-1.3); Total Protein 6.9 g/dL (6.3-8.2); Urobilinogen,Urine <2.0 mg/dL (<2.0)
[2023-04-24] MEDS: LORazepam 2 MG/ML INJ IV STA (08:26)
[2023-04-24] MEDS: SODIUM CHLORIDE 0.9% 1,000 ML IV ONE (08:50)
[2023-04-24 09:42] VITALS: BP 134/112; PULSE 78; RESP 18
== END 2023-04-24 09:18 | disposition home or self-care (01) ==
LOC: EC 06:58
DX: E86.0 Dehydration (principal); K21.9 Gastro-esophageal reflux disease without esophagitis; I10 Essential (primary) hypertension; E07.9 Disorder of thyroid, unspecified; F41.9 Anxiety disorder, unspecified; F31.9 Bipolar disorder, unspecified; J44.9 Chronic obstructive pulmonary disease, unspecified; F12.90 Cannabis use, unspecified, uncomplicated; Z79.890 Hormone replacement therapy; Z79.899 Other long term (current) drug therapy; Z88.8 Allergy status to other drugs, medicaments and biological substances; Z20.822 Contact with and (suspected) exposure to COVID-19
CPT/HCPCS: 36415; 80053; 83605; 83690; 85025; 81003; 87636; 71046; 99284; 96374; 96375 ×2; 96361; J2060; J1200; J2765